=== PATIENT | male | born 1975 | race African-American/Black ===

== ENCOUNTER 2018-09-13 12:57 | Emergency (ER) | payer SELFPAY ==
--- NOTE | 2018-09-13 14:06 | RAD REPORT ---
EXAM DESCRIPTION: CT - Abdomen Pelvis Wo Contrast - 09/13/2018 1:55 pm CLINICAL HISTORY: Abdominal pain epigastric pain with vomiting COMPARISON: None TECHNIQUE: Computed axial tomography of the abdomen and pelvis was obtained. IV and oral contrast we re not requested. All CT scans are performed using dose optimization technique as appropriate and may include automated exposure control or mA/KV adjustment according to patient size. FINDINGS: The evaluation of solid organs, vessels and bowel is limited secondary to the lack of con trast administration. The liver, spleen, pancreas, adrenals and kidneys appear grossly normal. The appendix is normal. There is no evidence of diverticulitis. IMPRESSION: No acute abnormality is displayed.
[2018-09-13 14:35] LABS: Absolute Lymphocytes (CBC) 1.2 K/uL (0.7-4.9); Absolute Monocytes 0.3 K/uL (0.1-1.3); Absolute Neutrophil 7.3 K/uL (1.8-8.0); Basophils % 0.5 % (0-1.3); Eosinophils % 0.1 % (0-4.4); Hematocrit 43.4 % (39.6-49.0); Lymphocytes % 13.2 % (15.3-44.8); MPV 10.1 fL (7.6-11.3); Monocytes % 3.9 % (3.3-12.3); RBC Red Blood Cell Count 4.95 M/uL (4.33-5.43)
[2018-09-13 14:51] LABS: ALT/SGPT 50 U/L (12-78); AST/SGOT 39 U/L (15-37); Albumin 3.6 g/dL (3.4-5.0); Alkaline Phosphatase 138 U/L (45-117); BUN Blood Urea Nitrogen 8 mg/dL (7-18); Bicarbonate 31 mmol/L (21-32); Bilirubin Direct 0.2 mg/dL (0-0.2); Bilirubin Total 0.8 mg/dL (0.2-1.0); Glucose Level 282 mg/dL (74-106); Lipase 147 U/L (73-393); Potassium 4.1 mmol/L (3.5-5.1); Protein, Total 9.4 g/dL (6.4-8.2); Sodium Level 136 mmol/L (136-145)
[2018-09-13] MEDS ORDERED: KETOROLAC 30 MG/ML INJ ONE (15:04)
[2018-09-13] MEDS ORDERED: ONDANSETRON 4 MG/2 ML VIAL ONE (15:05)
[2018-09-13] MEDS ORDERED: FAMOTIDINE 20 MG/2 ML VIAL IV ONE (15:37)
--- NOTE | 2018-09-13 15:54 | EDPHYS ---
Physician Documentation [facility] Name: Ely Chisholm Age: 43 yrs Sex: Male : 1975 Arrival Date: 09/13/2018 Time: 13:00 Bed 25 Private MD: ED Physician Ed Gonzales HPI: 09/13 15:49 This 43 yrs old Black Male presents to ER via Ambulatory with complaints of Abdominal gs Pain. 15:49 The patient presents with abdominal pain in the epigastric area, in the upper abdomen. gs Onset: The symptoms/episode began/occurred 7 day(s) ago. The symptoms do not radiate. Associated signs and symptoms: Pertinent positives: nausea. The symptoms are described as crampy. The symptoms are described as sharp. Modifying factors: The symptoms are alleviated by nothing, the symptoms are aggravated by food. Severity of pain: At its worst the pain was moderate in the emergency department the pain is unchanged. The patient has not experienced similar symptoms in the past. The patient has not recently seen a physician. Historical: - Allergies: 13:31 No Known Allergies; ph - Home Meds: 13:31 Metformin Oral [Active]; Glipizide Oral [Active]; ph - PMHx: 13:31 Diabetes - NIDDM; ph - PSHx: 13:31 ankle; ph - Social history:: The patient lives at home. ROS: 15:49 All other systems are negative. gs Exam: 15:49 Head/Face: Normocephalic, atraumatic. Eyes: Pupils equal round and reactive to light, gs extra-ocular motions intact. Lids and lashes normal. Conjunctiva and sclera are non-icteric and not injected. Cornea within normal limits. Periorbital areas with no swelling, redness, or edema. ENT: Nares patent. No nasal discharge, no septal abnormalities noted. Tympanic membranes are normal and external auditory canals are clear. Oropharynx with no redness, swelling, or masses, exudates, or evidence of obstruction, uvula midline. Mucous membranes moist. Neck: Trachea midline, no thyromegaly or masses palpated, and no cervical lymphadenopathy. Supple, full range of motion without nuchal rigidity, or vertebral point tenderness. No Meningismus. Chest/axilla: Normal chest wall appearance and motion. Nontender with no deformity. No lesions are appreciated. Cardiovascular: Regular rate and rhythm with a normal S1 and S2. No gallops, murmurs, or rubs. Normal PMI, no JVD. No pulse deficits. Respiratory: Lungs have equal breath sounds bilaterally, clear to auscultation and percussion. No rales, rhonchi or wheezes noted. No increased work of breathing, no retractions or nasal flaring. Back: No spinal tenderness. No costovertebral tenderness. Full range of motion. Skin: Warm, dry with normal turgor. Normal color with no rashes, no lesions, and no evidence of cellulitis. MS/ Extremity: Pulses equal, no cyanosis. Neurovascular intact. Full, normal range of motion. Neuro: Awake and alert, GCS 15, oriented to person, place, time, and situation. Cranial nerves II-XII grossly intact. Motor strength 5/5 in all extremities. Sensory grossly intact. Cerebellar exam normal. Normal gait. 15:49 Constitutional: The patient appears in no acute distress, alert, awake. 15:49 Abdomen/GI: Palpation: moderate abdominal tenderness, in the epigastric area and left upper quadrant. 15:49 ECG was reviewed by the Attending Physician. Vital Signs: 13:30 BP 131 / 101; Pulse 103; Resp 20; Temp 99.3(O); Pulse Ox 100% on R/A; Weight 63.96 kg; ph Height 5 ft. 3 in. (160.02 cm); Pain 5/10; 15:00 BP 138 / 100; Pulse 100; Resp 17; Pulse Ox 100% on R/A; Pain 7/10; sg 13:30 Body Mass Index 24.98 (63.96 kg, 160.02 cm) ph MDM: 13:38 Patient medically screened. gs 15:49 Differential diagnosis: bowel obstruction, gastroesophageal reflux disease, gs non-specific abd pain, pancreatitis, Peptic Ulcer Disease. Data reviewed: vital signs, nurses notes. Counseling: I had a detailed discussion with the patient and/or guardian regarding: the historical points, exam findings, and any diagnostic results supporting the discharge/admit diagnosis, the presence of at least one elevated blood pressure reading (>120/80) during this emergency department visit, lab results, radiology results, the need for outpatient follow up, a property insurance agent. Response to treatment: the patient's symptoms have markedly improved after treatment, and as a result, I will discharge patient. 09/13 13:40 Order name: Basic Metabolic Panel; Complete Time: 15:04 09/13 13:40 Order name: CBC with Diff; Complete Time: 15:04 09/13 13:40 Order name: Hepatic Function; Complete Time: 15:04 09/13 13:40 Order name: Lipase; Complete Time: 15:04 09/13 13:41 Order name: Urine Microscopic Only 09/13 16:34 Order name: Urine Dipstick--Ancillary (enter results) 09/13 13:40 Order name: IV Saline Lock; Complete Time: 14:31 09/13 13:40 Order name: Labs collected and sent; Complete Time: 14:31 09/13 13:41 Order name: CT Abd/Pelvis - Without Cont; Complete Time: 14:26 09/13 15:17 Order name: EKG; Complete Time: 15:18 09/13 15:17 Order name: EKG - Nurse/Tech; Complete Time: 16:08 EC:49 Rate is 89 beats/min. Rhythm is regular. OR interval is normal. QRS interval is normal. gs T waves are Flattened. No ST changes noted. Clinical impression: Abnormal EKG without significant change. Interpreted by me. Administered Medications: 15:00 Drug: TORadol 30 mg Route: IVP; Site: right antecubital; sg 15:37 Follow up: Response: No adverse reaction; Pain is decreased sg 15:02 Drug: Zofran 4 mg Route: IVP; Site: right antecubital; sg 15:37 Follow up: Response: No adverse reaction; Vomiting decreased sg 15:36 Drug: Pepcid 20 mg Route: IVP; Site: right antecubital; sg 16:08 Follow up: Response: No adverse reaction sg Disposition: 09/13/18 15:53 Discharged to Home. Impression: Upper abdominal pain, unspecified, Vomiting. - Condition is Stable. - Discharge Instructions: Nausea and Vomiting, Adult, Managing Your Hypertension. - Prescriptions for Pepcid 20 mg Oral Tablet - take 1 tablet by ORAL route every 12 hours for 10 days; 60 tablet. Zofran 4 mg Oral Tablet - take 1 tablet by ORAL route every 12 hours As needed; 6 tablet. - Work release form, Family Work Release, Medication Reconciliation Form, Thank You Letter, Antibiotic Education, Prescription Opioid Use form. - Follow up: Mynor Cleveland MD; When: 2 - 3 days; Reason: Re-evaluation by your physician. Signatures: Dispatcher [employer] EDSanjeev Cohn RN RN sg Desiree Adams RN RN iw Moira Sanchez RN RN ph Ed Gonzales MD MD Corrections: (The following items were deleted from the chart) 16:27 15:53 09/13/2018 15:53 Discharged to Home. Impression: Upper abdominal pain, sg unspecified; Vomiting. Condition is Stable. Forms are Medication Reconciliation Form, Thank You Letter, Antibiotic Education, Prescription Opioid Use. Follow up: Mynor Cleveland; When: 2 - 3 days; Reason: Re-evaluation by your physician. 16:52 16:27 09/13/2018 15:53 Discharged to Home. Impression: Upper abdominal pain, iw unspecified; Vomiting. Condition is Stable. Discharge Instructions: Nausea and Vomiting, Adult, Managing Your Hypertension. Prescriptions for Pepcid 20 mg Oral Tablet - take 1 tablet by ORAL route every 12 hours for 10 days; 60 tablet, Zofran 4 mg Oral Tablet - take 1 tablet by ORAL route every 12 hours As needed; 6 tablet. and Forms are Medication Reconciliation Form, Thank You Letter, Antibiotic Education, Prescription Opioid Use, Work release form, Family Work Release. Follow up: Mynor Cleveland; When: 2 - 3 days; Reason: Re-evaluation by your physician. sg
--- NOTE | 2018-09-13 15:54 | ER ---
Nurse's Notes [facility] Name: Ely Chisholm Age: 43 yrs Sex: Male : 1975 Arrival Date: 09/13/2018 Time: 13:00 Bed 25 Private MD: Diagnosis: Upper abdominal pain, unspecified;Vomiting Presentation: 09/13 13:29 Presenting complaint: Patient states: Epigastric pain, N/V x 1 week, denies diarrhea or ph fever, states, " I can't eat a full meal because the pain gets too bad." Reports that pain improves after vomiting. Transition of care: patient was not received from another setting of care. Onset of symptoms was September 13, 2018. Risk Assessment: Do you want to hurt yourself or someone else? Patient reports no desire to harm self or others. Initial Sepsis Screen: Does the patient meet any 2 criteria? No. Patient's initial sepsis screen is negative. Does the patient have a suspected source of infection? No. Patient's initial sepsis screen is negative. Care prior to arrival: None. 13:29 Method Of Arrival: Ambulatory ph 13:29 Acuity: SALMA 3 ph Historical: - Allergies: 13:31 No Known Allergies; ph - Home Meds: 13:31 Metformin Oral [Active]; Glipizide Oral [Active]; ph - PMHx: 13:31 Diabetes - NIDDM; ph - PSHx: 13:31 ankle; ph - Social history:: The patient lives at home. Screenin:55 Abuse screen: Denies threats or abuse. Denies injuries from another. Nutritional sg screening: No deficits noted. Tuberculosis screening: No symptoms or risk factors identified. Never had TB. Fall Risk None identified. Assessment: 13:58 General: Appears in no apparent distress. comfortable, well groomed, well developed, sg well nourished, Behavior is calm, cooperative, appropriate for age. Pain: Complains of pain in abdomen Quality of pain is described as aching. Neuro: No deficits noted. Cardiovascular: Capillary refill is brisk in bilateral fingers Patient's skin is warm and dry. Chest pain is denied. Respiratory: Airway Respiratory effort is even, unlabored, Respiratory pattern is regular, symmetrical. GI: Bowel sounds present X 4 quads. Abd is soft and non tender X 4 quads. : No signs and/or symptoms were reported regarding the genitourinary system. EENT: No deficits noted. Derm: Skin is intact, is healthy with good turgor, Skin is dry, Skin is normal. Musculoskeletal: No signs and/or symptoms reported regarding the musculoskeletal system. 14:51 Reassessment: pt requesting food, drink, and pain medication at this time. sg notified, orders received, will continue to monitor. 14:58 Reassessment: Patient and/or family updated on plan of care and expected duration. Pain sg level reassessed. pt actively vomiting bile, notified, orders received for NPO, for Zofran 4 mg IVP along with Toradol 30 mg IVP, pt medicated, see EMAR. 16:23 Reassessment: Patient appears in no apparent distress at this time. Patient and/or sg family updated on plan of care and expected duration. Pain level reassessed. Patient is alert, oriented x 3, equal unlabored respirations, skin warm/dry/pink. awaiting to re evaluate pt prior to dc to home. Vital Signs: 13:30 BP 131 / 101; Pulse 103; Resp 20; Temp 99.3(O); Pulse Ox 100% on R/A; Weight 63.96 kg; ph Height 5 ft. 3 in. (160.02 cm); Pain 5/10; 15:00 BP 138 / 100; Pulse 100; Resp 17; Pulse Ox 100% on R/A; Pain 7/10; sg 13:30 Body Mass Index 24.98 (63.96 kg, 160.02 cm) ph ED Course: 13:00 Patient arrived in ED. as 13:25 Ed Gonzales MD is Attending Physician. gs 13:30 Triage completed. ph 13:31 Sanjeev Rossi, MOMO is Primary Nurse. sg 13:54 CT completed. Patient tolerated procedure well. Patient moved to CT via wheelchair. sj Patient moved back from CT. 13:55 CT Abd/Pelvis - Without Cont In Process Unspecified. EDMS 13:55 Patient has correct armband on for positive identification. Bed in low position. Call sg light in reach. Pulse ox on. NIBP on. Warm blanket given. Verbal reassurance given. Head of bed elevated. 13:58 Patient moved back from CT. sg 14:23 Inserted saline lock: 20 gauge in right antecubital area, using aseptic technique. ag4 Blood collected. 15:52 Mynor Cleveland MD is Referral Physician. 16:36 EKG done, by civil cad tech. reviewed by Ed Gonzales MD. sm3 Administered Medications: 15:00 Drug: TORadol 30 mg Route: IVP; Site: right antecubital; sg 15:37 Follow up: Response: No adverse reaction; Pain is decreased sg 15:02 Drug: Zofran 4 mg Route: IVP; Site: right antecubital; sg 15:37 Follow up: Response: No adverse reaction; Vomiting decreased sg 15:36 Drug: Pepcid 20 mg Route: IVP; Site: right antecubital; sg 16:08 Follow up: Response: No adverse reaction sg Outcome: 15:53 Discharge ordered by . gs 16:27 Patient left the ED. 16:52 Patient left the ED. iw Signatures: Dispatcher [employer] EDMS Sanjeev Rossi RN RN sg Jones, Susan sj Martinez, Amelia as Williams, Irene, RN RN Moira Sanchez RN RN Ed Gonzales MD MD Destiney Anand 3 Choco, Garrick ag4
[2018-09-13 17:01] LABS: Urine RBC <5 /HPF (NONE SEEN)
[2018-09-13 17:02] LABS: Urine Bacteria <20 /HPF (NONE SEEN); Urine Culture Reflex Order NOT NEEDED
[2018-09-13 17:02] LABS: Urine Blood NEGATIVE (NEG); Urine Glucose 2+ (NEG); Urine Protein 1+ (NEG); Urine Specific Gravity 1.015 (1.005-1.030)
--- NOTE | 2018-09-13 18:25 | EKG ---
Test Date: 2018-09-13 Test Time: 15:44:28 Stapler Hand: OMER MEASUREMENT RESULTS: Intervals: Rate: 89 WV: 124 QRSD: 76 QT: 372 QTc: 452 Ventress: P: 74 WV: 124 QRS: 18 T: 56 INTERPRETIVE STATEMENTS: Normal sinus rhythm Nonspecific T wave abnormality Abnormal ECG Compared to ECG 02/06/2002 16:58:00 T-wave abnormality now present Sinus arrhythmia no longer present Electronically Signed On 09-13-18 18:24:50 INSTRUCTOR DECORATING by Mario Carlton
== END 2018-09-13 16:52 | disposition home or self-care (01) ==
LOC: ER 12:57
DX: R10.10 Upper abdominal pain, unspecified (principal); R11.10 Vomiting, unspecified; R94.31 Abnormal electrocardiogram [ECG] [EKG]; E11.9 Type 2 diabetes mellitus without complications; Z79.84 Long term (current) use of oral hypoglycemic drugs
CPT/HCPCS: 36415; 74176; 80048; 80076; 81003; 81015; 83690; 85025; 93005; 96374; 96375; 99284; J2405

== ENCOUNTER 2020-03-11 12:59 | Emergency (ER) | payer SELFPAY ==
--- OUTSIDE RECORDS SUMMARY | 2020-03-11 14:45 | XMS REPORT | Continuity of Care Document ---
:1975 Author Organization [facility] t Address [address] [place] [address] Dr. Elliott [address] [place] [id number] Care Team Providers Name Role Phone Unavailable Unavailable Unavailable Problems This patient has no known problems. Allergies, Adverse Reactions, Alerts This patient has no known allergies or adverse reactions. Medications This patient has no known medications. Procedures This patient has no known procedures. Results This patient has no known results.
[2020-03-11] MEDS ORDERED: MORPHINE 4 MG/ML SYR ONE (15:28)
[2020-03-11] MEDS ORDERED: ONDANSETRON 4 MG/2 ML VIAL ONE (15:29)
[2020-03-11] MEDS ORDERED: NA CHLORIDE 0.9% 1,000 ML ONE ×2 (15:29→16:45)
[2020-03-11 15:30] LABS: Absolute Lymphocytes (CBC) 0.6 K/uL (0.7-4.9); Basophils % 0.3 % (0-1.3); Hematocrit 45.6 % (39.6-49.0); Lymphocytes % 6.7 % (15.3-44.8); MPV 10.4 fL (7.6-11.3); RBC Red Blood Cell Count 5.25 M/uL (4.33-5.43)
[2020-03-11 16:07] LABS: ALT/SGPT 105 U/L (12-78); AST/SGOT 86 U/L (15-37); Albumin 3.4 g/dL (3.4-5.0); Alkaline Phosphatase 161 U/L (45-117); BUN Blood Urea Nitrogen 11 mg/dL (7-18); Bicarbonate 27 mmol/L (21-32); Bilirubin Direct 0.2 mg/dL (0-0.2); Bilirubin Total 0.5 mg/dL (0.2-1.0); Lipase 38 U/L (73-393); Potassium 4.3 mmol/L (3.5-5.1); Protein, Total 8.9 g/dL (6.4-8.2); Sodium Level 136 mmol/L (136-145)
[2020-03-11 16:08] LABS: Glucose Level 418 mg/dL (74-106)
[2020-03-11 16:17] LABS: Urine Blood TRACE (NEG); Urine Glucose 2+ (NEG); Urine Protein 2+ (NEG); Urine Specific Gravity 1.015 (1.005-1.030)
[2020-03-11] MEDS ORDERED: INSULIN -REGULAR HUMAN 50 UNIT/0.5 ML ML ONE (16:45)
--- NOTE | 2020-03-11 17:50 | RAD REPORT ---
EXAM DESCRIPTION: CTAbdomen Pelvis W Contrast - 03/11/2020 5:29 pm CLINICAL HISTORY: Abdominal pain. abd pain COMPARISON: No comparisons TECHNIQUE: Biphasic CT imaging of the abdomen and pelvis was performed with 100 ml non-ionic IV cont rast. All CT scans are performed using dose optimization technique as appropriate and may include automated exposure control or mA/KV adjustment according to patient size. FINDINGS: Small opacities are present in the lung bases, incompletely assessed.Cholecystectomy clips . The liver, spleen, pancreas, adrenal glands and kidneys are within normal limits. No bowel obstruction, free air, free fluid or abscess. The appendix is normal. No evidence of signi ficant lymphadenopathy. No suspicious bony findings. IMPRESSION: No acute intra-abdominal or pelvic finding.
--- NOTE | 2020-03-11 18:05 | EDPHYS ---
Physician Documentation [facility] Name: Ely Chisholm Age: 44 yrs Sex: Male : 1975 Arrival Date: 03/11/2020 Time: 13:06 Bed 25 Private MD: ED Physician Stephen Mcpherson HPI: 03/11 16:35 This 44 yrs old Black Male presents to ER via Wheelchair with complaints of Abdominal kb Pain, Nausea/Vomiting. 16:35 The patient presents with abdominal pain that is diffuse. Onset: The symptoms/episode kb began/occurred this morning, at 03:30. The symptoms do not radiate. Associated signs and symptoms: Pertinent positives: nausea and vomiting, Pertinent negatives: anorexia, blood in stools, chest pain, constipation, diarrhea, dysuria, fever, headache, hematuria, palpitations, shortness of breath, testicular pain, vomiting blood. The symptoms are described as constant. Modifying factors: The symptoms are alleviated by nothing, the symptoms are aggravated by nothing. Severity of pain: At its worst the pain was moderate in the emergency department the pain is unchanged. The patient has not experienced similar symptoms in the past. The patient has not recently seen a physician. Historical: - Allergies: 13:27 No Known Allergies; ca1 - Home Meds: 13:27 Glipizide Oral [Active]; carvedilol 12.5 mg oral tab 1 tab 2 times per day [Active]; ca1 aspirin 81 mg Oral TbEC 1 tab once daily [Active]; glyburide 5 mg Oral tab 1 tab 2 times per day [Active]; pioglitazone 30 mg oral tab 1 tab once daily [Active]; - PMHx: 13:27 Diabetes - NIDDM; Hypertension; ca1 - PSHx: 13:27 ankle; ca1 - Immunization history:: Adult Immunizations not up to date. - Social history:: Smoking status: Patient denies any tobacco usage or history of. ROS: 16:31 Constitutional: Negative for fever, chills, and weight loss, Cardiovascular: Negative kb for chest pain, palpitations, and edema, Respiratory: Negative for shortness of breath, cough, wheezing, and pleuritic chest pain, Back: Negative for injury and pain, MS/Extremity: Negative for injury and deformity, Skin: Negative for injury, rash, and discoloration, Neuro: Negative for headache, weakness, numbness, tingling, and seizure. 16:31 Abdomen/GI: Positive for abdominal pain, nausea and vomiting, Negative for diarrhea, constipation, abdominal cramps, abdominal distension, anorexia. Exam: 16:31 Constitutional: This is a well developed, well nourished patient who is awake, alert, kb and in no acute distress. Head/Face: Normocephalic, atraumatic. Chest/axilla: Normal chest wall appearance and motion. Nontender with no deformity. No lesions are appreciated. Cardiovascular: Regular rate and rhythm with a normal S1 and S2. No gallops, murmurs, or rubs. Normal PMI, no JVD. No pulse deficits. Respiratory: Lungs have equal breath sounds bilaterally, clear to auscultation and percussion. No rales, rhonchi or wheezes noted. No increased work of breathing, no retractions or nasal flaring. Back: No spinal tenderness. No costovertebral tenderness. Full range of motion. Skin: Warm, dry with normal turgor. Normal color with no rashes, no lesions, and no evidence of cellulitis. MS/ Extremity: Pulses equal, no cyanosis. Neurovascular intact. Full, normal range of motion. Neuro: Awake and alert, GCS 15, oriented to person, place, time, and situation. Cranial nerves II-XII grossly intact. Motor strength 5/5 in all extremities. Sensory grossly intact. Cerebellar exam normal. Normal gait. 16:31 Abdomen/GI: Inspection: bruising, Bowel sounds: normal, in all quadrants, Palpation: soft, in all quadrants, moderate abdominal tenderness, in all quadrants. Vital Signs: 13:23 BP 171 / 101; Pulse 85; Resp 15 S; Temp 97.7(TE); Pulse Ox 96% on R/A; Weight 68.95 kg ca1 (R); Height 5 ft. 3 in. (160.02 cm); 15:42 BP 167 / 106; Pulse 80; Resp 15; Pulse Ox 98% on R/A; vc 16:00 BP 195 / 107; Pulse 73; Resp 16; Pulse Ox 98% on R/A; vc 18:03 BP 179 / 96; Pulse 81; Pulse Ox 98% on R/A; vc 13:23 Body Mass Index 26.93 (68.95 kg, 160.02 cm) ca1 MDM: 14:09 Patient medically screened. kb 16:32 Data reviewed: vital signs, nurses notes. Data interpreted: Pulse oximetry: on room air kb is 98 %. Interpretation: normal. 17:52 Counseling: I had a detailed discussion with the patient and/or guardian regarding: the kb historical points, exam findings, and any diagnostic results supporting the discharge/admit diagnosis, lab results, radiology results, the need for outpatient follow up, a family practitioner, to return to the emergency department if symptoms worsen or persist or if there are any questions or concerns that arise at home. 03/11 13:44 Order name: Glucose, Ancillary Testing; Complete Time: 13:45 EDMS 03/11 15:33 Order name: CBC with Automated Diff EDMS 03/11 15:46 Order name: Acetone Level; Complete Time: 16:17 EDMS 03/11 16:09 Order name: Basic Metabolic Panel; Complete Time: 16:17 EDMS 03/11 16:09 Order name: Liver (Hepatic) Function; Complete Time: 16:17 EDMS 03/11 16:09 Order name: Lipase; Complete Time: 16:17 EDMS 03/11 16:17 Order name: Urine Dipstick-Ancillary; Complete Time: 16:17 EDMS 03/11 18:15 Order name: Glucose, Ancillary Testing EDMS 03/11 14:39 Order name: IV Saline Lock; Complete Time: 15:17 kb 03/11 14:39 Order name: Labs collected and sent; Complete Time: 15:17 kb 03/11 14:39 Order name: Urine Dipstick-Ancillary (obtain specimen); Complete Time: 15:41 kb 03/11 16:08 Order name: CT Abd/Pelvis - IV Contrast Only kb 03/11 17:51 Order name: CT; Complete Time: 17:51 EDMS 03/11 17:53 Order name: Blood Glucose Level; Complete Time: 18:03 kb Administered Medications: 15:41 Drug: NS 0.9% 1000 ml Route: IV; Rate: 1000 ml; Site: right antecubital; vc 16:41 Follow up: IV Status: Completed infusion; IV Intake: 1000ml vc 15:41 Drug: morphine 4 mg Route: IVP; Site: right antecubital; vc 18:24 Follow up: Response: No adverse reaction vc 15:41 Drug: Zofran (Ondansetron) 4 mg Route: IVP; Site: right antecubital; vc 18:24 Follow up: Response: No adverse reaction vc 16:39 Drug: Insulin Regular Human 10 units {Co-Signature: ss (Marni Lea RN).} Route: IVP; vc Site: right antecubital; 18:23 Follow up: Response: No adverse reaction; Marked relief of symptoms vc 16:39 Drug: NS 0.9% 1000 ml Route: IV; Rate: 1000 ml; Site: right antecubital; vc 18:34 Follow up: IV Status: Completed infusion; IV Intake: 1000ml vc Point of Care Testing: Blood Glucose: 13:28 Blood Glucose: 423 mg/dL; ca1 Ranges: Critical Glucose Levels:Adult <50 mg/dl or >400 mg/dl <40 mg/dl or >180 mg/dl Disposition: 03/12 15:57 Co-signature as Attending Physician, Stephen Mcpherson MD I agree with the assessment and kdr plan of care. Disposition: 03/11/20 18:04 Discharged to Home. Impression: Hyperglycemia, unspecified, Generalized abdominal pain. - Condition is Stable. - Discharge Instructions: Abdominal Pain, Adult, [id number], Hyperglycemia, [id number]. - Prescriptions for Bentyl 20 mg Oral Tablet - take 1 tablet by ORAL route every 6 hours As needed; 20 tablet. Zofran 4 mg Oral Tablet - take 1 tablet by ORAL route every 6 hours As needed; 20 tablet. - Medication Reconciliation Form, Thank You Letter, Antibiotic Education, Prescription Opioid Use form. - Follow up: Emergency Department; When: As needed; Reason: Worsening of condition. Follow up: Private Physician; When: 2 - 3 days; Reason: Recheck today's complaints, Continuance of care, Re-evaluation by your physician. Addendum: 03/13/2020 18:54 Addendum: Pt contacted at 1855 to notify of positive COVID-19 test results, feeling r n better, questions answered, told health department will be contacting for further instructions and documentation. . Signatures: Dispatcher [employer] EDMS Shanell Soto, REGLAC JEANNA-Stephen Polk MD MD kdr Nieto, Roman, MD MD rn Acob, Joyce, RN RN ca1 Calcote, AbbeyMOMO fiore RN, vc, RN ss Corrections: (The following items were deleted from the chart) 03/11 18:37 18:04 03/11/2020 18:04 Discharged to Home. Impression: Hyperglycemia, unspecified; vc Generalized abdominal pain. Condition is Stable. Discharge Instructions: Abdominal Pain, Adult, Zzla-[id number], Hyperglycemia, Ruhm-wx-Quoi. Prescriptions for Bentyl 20 mg Oral Tablet - take 1 tablet by ORAL route every 6 hours As needed; 20 tablet, Zofran 4 mg Oral Tablet - take 1 tablet by ORAL route every 6 hours As needed; 20 tablet. and Forms are Medication Reconciliation Form, Thank You Letter, Antibiotic Education, Prescription Opioid Use. Follow up: Emergency Department; When: As needed; Reason: Worsening of condition. Follow up: Private Physician; When: 2 - 3 days; Reason: Recheck today's complaints, Continuance of care, Re-evaluation by your physician. kb
--- NOTE | 2020-03-11 18:05 | ER ---
Nurse's Notes [facility] Name: Ely Chisholm Age: 44 yrs Sex: Male : 1975 Arrival Date: 03/11/2020 Time: 13:06 Bed 25 Private MD: Diagnosis: Hyperglycemia, unspecified;Generalized abdominal pain Presentation: 03/11 13:23 Chief complaint: Patient states: Vomiting and lost of appetite since yesterday. Denies ca1 diarrhea. Denies fever. Coronavirus screen: Proceed with normal triage. Patient denies a cough. Patient denies shortness of breath or difficulty breathing. Patient denies measured and/or subjective temperature greater than 100.4F prior to today's visit. Patient denies travel on a cruise ship or to a country the [facility] currently lists as an affected area. Patient denies contact with known and/or suspected case of COVID-19. Ebola Screen: Patient negative for fever greater than or equal to 101.5 degrees Fahrenheit, and additional compatible Ebola Virus Disease symptoms Patient denies exposure to infectious person. Patient denies travel to an Ebola-affected area in the 21 days before illness onset. No symptoms or risks identified at this time. Initial Sepsis Screen: Does the patient meet any 2 criteria? No. Patient's initial sepsis screen is negative. Does the patient have a suspected source of infection? No. Patient's initial sepsis screen is negative. Risk Assessment: Do you want to hurt yourself or someone else? Patient reports no desire to harm self or others. Onset of symptoms was March 11, 2020. 13:23 Method Of Arrival: Wheelchair ca1 13:23 Acuity: SALMA 2 ca1 Historical: - Allergies: 13:27 No Known Allergies; ca1 - Home Meds: 13:27 Glipizide Oral [Active]; carvedilol 12.5 mg oral tab 1 tab 2 times per day [Active]; ca1 aspirin 81 mg Oral TbEC 1 tab once daily [Active]; glyburide 5 mg Oral tab 1 tab 2 times per day [Active]; pioglitazone 30 mg oral tab 1 tab once daily [Active]; - PMHx: 13:27 Diabetes - NIDDM; Hypertension; ca1 - PSHx: 13:27 ankle; ca1 - Immunization history:: Adult Immunizations not up to date. - Social history:: Smoking status: Patient denies any tobacco usage or history of. Screenin:10 Abuse screen: Denies threats or abuse. Nutritional screening: No deficits noted. vc Tuberculosis screening: No symptoms or risk factors identified. Fall Risk None identified. Assessment: 14:10 General: Appears in no apparent distress. comfortable, Behavior is calm, cooperative, vc appropriate for age. Pain: Complains of pain in abdomen Pain does not radiate. Pain currently is 5 out of 10 on a pain scale. Quality of pain is described as sharp. Neuro: Level of Consciousness is awake, alert, obeys commands, Oriented to person, place, time, situation, Appropriate for age. Cardiovascular: Capillary refill < 3 seconds Patient's skin is warm and dry. Respiratory: Airway is patent Respiratory effort is even, unlabored, Respiratory pattern is regular, symmetrical. GI: Bowel sounds present X 4 quads. Abd is soft Abdomen is tender to palpation. : No signs and/or symptoms were reported regarding the genitourinary system. Derm: Skin is intact, is healthy with good turgor. Musculoskeletal: Circulation, motion, and sensation intact. Range of motion: intact in all extremities. 14:11 Reassessment: FATHER IS A PUI PATIENT IN THE ER JASS. vc 15:10 Reassessment: Patient appears in no apparent distress at this time. Patient and/or vc family updated on plan of care and expected duration. Pain level reassessed. Patient is alert, oriented x 3, equal unlabored respirations, skin warm/dry/pink. 16:10 Reassessment: Patient appears in no apparent distress at this time. Patient and/or vc family updated on plan of care and expected duration. Pain level reassessed. Patient is alert, oriented x 3, equal unlabored respirations, skin warm/dry/pink. 17:10 Reassessment: Patient appears in no apparent distress at this time. Patient and/or vc family updated on plan of care and expected duration. Pain level reassessed. Patient is alert, oriented x 3, equal unlabored respirations, skin warm/dry/pink. 18:10 Reassessment: Patient appears in no apparent distress at this time. Patient and/or vc family updated on plan of care and expected duration. Pain level reassessed. Patient is alert, oriented x 3, equal unlabored respirations, skin warm/dry/pink. Patient states feeling better. Patient states symptoms have improved. Vital Signs: 13:23 BP 171 / 101; Pulse 85; Resp 15 S; Temp 97.7(TE); Pulse Ox 96% on R/A; Weight 68.95 kg ca1 (R); Height 5 ft. 3 in. (160.02 cm); 15:42 BP 167 / 106; Pulse 80; Resp 15; Pulse Ox 98% on R/A; vc 16:00 BP 195 / 107; Pulse 73; Resp 16; Pulse Ox 98% on R/A; vc 18:03 BP 179 / 96; Pulse 81; Pulse Ox 98% on R/A; vc 13:23 Body Mass Index 26.93 (68.95 kg, 160.02 cm) ca1 ED Course: 13:06 Patient arrived in ED. fj1 13:13 Shanell Soto [facility]-C [facility]. kb 13:13 Stephen Mcpherson MD is Attending Physician. kb 13:25 Triage completed. ca1 13:27 Arm band placed on right wrist. ca1 14:10 Patient has correct armband on for positive identification. Placed in gown. Bed in low vc position. Call light in reach. Side rails up X2. Pulse ox on. NIBP on. 14:11 Abbey Juarez, MOMO is Primary Nurse. vc 15:18 Inserted saline lock: 20 gauge in right antecubital area, using aseptic technique. ss Blood collected. 18:33 No provider procedures requiring assistance completed. IV discontinued, intact, vc bleeding controlled, No redness/swelling at site. Pressure dressing applied. 03/12 09:21 Health Dept notified/ PUI # [id number] / Itzel from lab notified. eb Administered Medications: 03/11 15:41 Drug: NS 0.9% 1000 ml Route: IV; Rate: 1000 ml; Site: right antecubital; vc 16:41 Follow up: IV Status: Completed infusion; IV Intake: 1000ml vc 15:41 Drug: morphine 4 mg Route: IVP; Site: right antecubital; vc 18:24 Follow up: Response: No adverse reaction vc 15:41 Drug: Zofran (Ondansetron) 4 mg Route: IVP; Site: right antecubital; vc 18:24 Follow up: Response: No adverse reaction vc 16:39 Drug: Insulin Regular Human 10 units {Co-Signature: rina (Marni Lea RN).} Route: IVP; vc Site: right antecubital; 18:23 Follow up: Response: No adverse reaction; Marked relief of symptoms vc 16:39 Drug: NS 0.9% 1000 ml Route: IV; Rate: 1000 ml; Site: right antecubital; vc 18:34 Follow up: IV Status: Completed infusion; IV Intake: 1000ml vc Point of Care Testing: Blood Glucose: 13:28 Blood Glucose: 423 mg/dL; ca1 Ranges: Intake: 16:41 IV: 1000ml; Total: 1000ml. vc 18:34 IV: 1000ml; Total: 2000ml. vc Outcome: 18:04 Discharge ordered by . kb 18:33 Discharged to home ambulatory. vc 18:33 Condition: improved 18:33 Discharge instructions given to patient, Instructed on discharge instructions, follow up and referral plans. medication usage, Demonstrated understanding of medications, Prescriptions given X 2. 18:37 Patient left the ED. vc Signatures: Shanell Soto, SALES SERVICE ROUTE MANAGER-C SALES SERVICE ROUTE MANAGER-Marni Garcia, MOMO RN ss Ivett Celaya Cheryl RN RN ca1 Abbey Juarez RN RN vc Alonzo Nichols RN ss
[2020-03-11 18:41] VITALS: TEMP 97.7
[2020-03-11 18:42] VITALS: O2SAT 98
[2020-03-11 18:45] VITALS: BP 179/96
[2020-03-11 21:03] LABS: Blood Morphology Comment NOT SEEN (NOT SEEN); Platelet Estimate DECR; Urine White Blood Cell Casts OK
== END 2020-03-11 18:37 | disposition home or self-care (01) ==
LOC: ER 12:59
DX: U07.1 COVID-19 (principal); E11.65 Type 2 diabetes mellitus with hyperglycemia; I10 Essential (primary) hypertension; Z79.82 Long term (current) use of aspirin
CPT/HCPCS: 36415; 74177; 80048; 80076; 81003; 82010; 82947; 83690; 85025; 96361; 96374; 96375; 99284; J2405; J7030; Q9967; U0001

== ENCOUNTER 2024-01-04 20:01 | Inpatient (IN) | payer OTHER, SELFPAY ==
--- OUTSIDE RECORDS SUMMARY | 2024-01-04 20:03 | XMS REPORT | Continuity of Care Document ---
Author Name Unknown Address [address] [place] [address] [facility] Address [address] [place] [address] Care Team Providers Care Home Care Nurse Name Role Phone Unavailable Unavailable Unavailable
[2024-01-04] MEDS ORDERED: NA CHLORIDE 0.9% 500 ML ONE (20:32)
[2024-01-04] MEDS ORDERED: NA CHLORIDE 0.9% 1,000 ML ONE ×3 (20:32→22:09)
--- NOTE | 2024-01-04 20:55 | RAD REPORT ---
EXAM DESCRIPTION: RAD - Chest Single View - 01/04/2024 8:43 pm CLINICAL HISTORY: CHEST PAIN COMPARISON: No comparisons FINDINGS: Lines: None. Lungs: No evidence of edema or pneumonia. Pleural: No significant pleural effusions or pneumothorax. Cardiac: The heart size is within normal limits. Mediastinum: Within normal limits. Bones: No acute fractures. Other: None IMPRESSION: No acute cardiopulmonary disease.
[2024-01-04 21:10] LABS: Absolute Basophils 0.1 K/uL (0-0.5); Absolute Lymphocytes (CBC) 1.1 K/uL (0.7-4.9); Absolute Monocytes 0.6 K/uL (0.1-1.3); Basophils % 0.5 % (0-1.3); Hematocrit 41.9 % (39.6-49.0); Lymphocytes % 5.2 % (15.3-44.8); MCH 29.6 pg (27.0-35.0); MCHC 33.3 g/dL (32.0-36.0); MCV 88.7 fL (80-100); MPV 9.9 fL (7.6-11.3); Neutrophils % 91.3 % (41.7-73.7); Nucleated Red Blood Cells % 0.1 % (0-0); Platelets 174 thou/uL (152-406); RBC Red Blood Cell Count 4.72 M/uL (4.33-5.43); Red Cell Distribution Width 14.4 % (12.1-15.2)
[2024-01-04 21:16] LABS: PT Prothrombin Time 13.6 SECONDS (9.5-12.5); Protime INR 1.24
[2024-01-04 21:21] LABS: SARS-CoV-2 Antigen CONTROL BLUE LINE VIS/BG OK; SARS-CoV-2 Antigen Rapid Res Negative (Negative)
[2024-01-04 21:30] LABS: Albumin 3.5 g/dL (3.4-5.0); Anion Gap 17.6 mEq/L (5.0-15.0); Bilirubin Direct 0.3 mg/dL (0-0.2); Bilirubin Indirect, Calculated 0.6 mg/dL (0.2-0.8); Bilirubin Total 0.9 mg/dL (0.2-1.0); Potassium 4.6 mEq/L (3.5-5.1); Protein, Total 9.3 g/dL (6.4-8.2)
[2024-01-04 21:31] LABS: Albumin/Globulin Ratio 0.6 (1.1-1.8); Globulin 5.8 g/dL (2.3-3.5); Magnesium 2.1 mg/dL (1.6-2.4)
[2024-01-04] MEDS ORDERED: ONDANSETRON 4 MG/2 ML VIAL ONE (21:52)
[2024-01-04 21:56] LABS: Blood Morphology Comment NOT SEEN (NOT SEEN); Platelet Estimate ADEQ; White Blood Cell Scan OK (OK)
[2024-01-04 21:57] LABS: Troponin High Sensitivity 5.7 pg/mL (<58.9)
--- NOTE | 2024-01-04 22:08 | EDPHYS ---
Physician Documentation [facility] Name: Ely Chisholm Age: 48 yrs Sex: Male : 1975 Arrival Date: 01/04/2024 Time: 20:01 Bed 6 Private MD: SCAR Physician Sree Cantrell HPI: 01/03 21:22 This 48 yrs old Black Male presents to ER via Wheelchair with complaints of Vomiting, judy General Weakness. 21:22 The patient presents to the emergency department with nausea, vomiting, diarrhea, that judy is continuous. Onset: The symptoms/episode began/occurred 1 day(s) ago. Possible causes: unknown. The symptoms are aggravated by food , The symptoms are alleviated by nothing. remaining still. Associated signs and symptoms: Pertinent positives: diarrhea, nausea, vomiting. Severity of symptoms: At their worst the symptoms were moderate in the emergency department the symptoms are unchanged. The patient has experienced similar episodes in the past, a few times. Historical: - Allergies: 20:24 No Known Allergies; km8 - Home Meds: 20:24 aspirin 81 mg Oral TbEC 1 tab once daily [Active]; carvedilol 12.5 mg Oral tab 1 tab 2 km8 times per day [Active]; Glipizide Oral [Active]; glyburide 5 mg Oral tab 1 tab 2 times per day [Active]; pioglitazone 30 mg Oral tab 1 tab once daily [Active]; - PMHx: 20:24 Diabetes - NIDDM; Hypertension; km8 - PSHx: 20:24 Cholecystectomy; km8 - Immunization history:: Adult Immunizations up to date. - Infectious Disease History:: Denies. - Social history:: Smoking status: Patient denies any tobacco usage or history of. Patient uses alcohol, but reports only rare drinking. Patient/guardian denies using street drugs. ROS: 21:23 Constitutional: Negative for fever, chills, and weight loss, Eyes: Negative for injury, judy pain, redness, and discharge, ENT: Negative for injury, pain, and discharge, Neck: Negative for injury, pain, and swelling, Cardiovascular: Negative for chest pain, palpitations, and edema, Respiratory: Negative for shortness of breath, cough, wheezing, and pleuritic chest pain, Back: Negative for injury and pain, : Negative for injury, bleeding, discharge, and swelling, MS/Extremity: Negative for injury and deformity, Skin: Negative for injury, rash, and discoloration, Neuro: Negative for headache, weakness, numbness, tingling, and seizure, Psych: Negative for depression, anxiety, suicide ideation, homicidal ideation, and hallucinations, Allergy/Immunology: Negative for hives, rash, and allergies, Endocrine: Negative for neck swelling, polydipsia, polyuria, polyphagia, and marked weight changes, Hematologic/Lymphatic: Negative for swollen nodes, abnormal bleeding, and unusual bruising, 21:23 Abdomen/GI: Positive for nausea, vomiting, and diarrhea, nausea, vomiting, diarrhea, 21:23 Neuro: Positive for weakness, Exam: 21:23 Constitutional: This is a well developed, well nourished patient who is awake, alert, judy and in no acute distress. Head/Face: Normocephalic, atraumatic. Eyes: Pupils equal round and reactive to light, extra-ocular motions intact. Lids and lashes normal. Conjunctiva and sclera are non-icteric and not injected. Cornea within normal limits. Periorbital areas with no swelling, redness, or edema. ENT: Nares patent. No nasal discharge, no septal abnormalities noted. Tympanic membranes are normal and external auditory canals are clear. Oropharynx with no redness, swelling, or masses, exudates, or evidence of obstruction, uvula midline. Mucous membranes moist. Neck: Trachea midline, no thyromegaly or masses palpated, and no cervical lymphadenopathy. Supple, full range of motion without nuchal rigidity, or vertebral point tenderness. No Meningismus. Chest/axilla: Normal chest wall appearance and motion. Nontender with no deformity. No lesions are appreciated. Respiratory: Lungs have equal breath sounds bilaterally, clear to auscultation and percussion. No rales, rhonchi or wheezes noted. No increased work of breathing, no retractions or nasal flaring. Abdomen/GI: Soft, non-tender, with normal bowel sounds. No distension or tympany. No guarding or rebound. No evidence of tenderness throughout. Back: No spinal tenderness. No costovertebral tenderness. Full range of motion. Male : Normal genitalia with no discharge or lesions. Skin: Warm, dry with normal turgor. Normal color with no rashes, no lesions, and no evidence of cellulitis. MS/ Extremity: Pulses equal, no cyanosis. Neurovascular intact. Full, normal range of motion. Neuro: Awake and alert, GCS 15, oriented to person, place, time, and situation. Cranial nerves II-XII grossly intact. Motor strength 5/5 in all extremities. Sensory grossly intact. Cerebellar exam normal. Normal gait. Psych: Awake, alert, with orientation to person, place and time. Behavior, mood, and affect are within normal limits. 21:23 Cardiovascular: Rate: tachycardic, actual rate is 110 bpm, Rhythm: regular, Pulses: Pulses are 4+ in bilateral radial, brachial, femoral, popliteal, posterior tibial and and dorsalis pedis arteries.. Heart sounds: normal, Edema: is not appreciated, JVD: is not appreciated, 21:23 ECG was reviewed by the Attending Physician. Vital Signs: 20:23 BP 177 / 106; Pulse 118; Resp 16; Temp 98.3(O); Pulse Ox 99% on R/A; Weight 72.57 kg km8 (R); Height 5 ft. 3 in. (R); Pain 3/10; 21:17 BP 210 / 112; Pulse 110; Resp 16; Pulse Ox 99% on R/A; mb9 22:08 BP 181 / 123; Pulse 111; Resp 16; Pulse Ox 97% on R/A; km8 22:30 BP 182 / 102; Pulse 98; Resp 18; Pulse Ox 97% on R/A; km8 23:00 BP 183 / 102; Pulse 101; Resp 18; Pulse Ox 98% on R/A; km8 23:15 BP 178 / 104; Pulse 107; Resp 16; Pulse Ox 99% on R/A; km8 23:45 BP 178 / 104; Pulse 107; Resp 16; Pulse Ox 99% on R/A; km8 0504 00:00 BP 182 / 103; Pulse 100; Resp 16; Pulse Ox 96% on R/A; km8 00:30 BP 174 / 115; Pulse 96; Resp 16; Pulse Ox 99% on R/A; km8 00:45 BP 139 / 92; Pulse 95; Resp 16; Pulse Ox 95% on R/A; km8 01:00 BP 121 / 86; Pulse 92; Resp 16; Pulse Ox 97% on R/A; km8 01:15 BP 114 / 81; Pulse 90; Resp 16; Pulse Ox 98% on R/A; [facility] 01:30 BP 106 / 78; Pulse 89; Resp 16; Pulse Ox 98% on R/A; [facility] 01/03 20:23 Body Mass Index 28.34 (72.57 kg, 160.02 cm) [facility] 01/03 20:23 Pain Scale: Adult [facility] MDM: 01/03 20:05 Patient medically screened. judy 20:12 Patient medically screened. [facility] 21:25 Differential diagnosis: Nonspecific abd pain, gastritis, pancreatitis, viral judy gastroenteritis, gastroenteritis. Differential Diagnosis sepsis, flu. Data reviewed: nurses notes, EMS record, lab test result(s), EKG, radiologic studies, plain films. Consideration of Admission/Observation Patient was admitted/placed on observation. Escalation of care including admission/observation considered. I considered the following discharge prescriptions or medication management in the emergency department Medications were administered in the Emergency Department. See MAR. Independent interpretation of the following test(s) in the Emergency Department EKG: See my EKG interpretation above. Test considered but Not performed: Ultrasound no abd usg. 01/03 20:07 Order name: Basic Metabolic Panel; Complete Time: 21:46 [facility] 01/03 20:07 Order name: CBC with Diff; Complete Time: 22:01 [facility] 01/03 20:07 Order name: LFT's; Complete Time: 21:46 [facility] 01/03 20:07 Order name: Magnesium; Complete Time: 21:46 [facility] 01/03 20:07 Order name: NT PRO-BNP; Complete Time: 22:01 [facility] 01/03 20:07 Order name: PT-INR; Complete Time: 21:46 [facility] 01/03 20:07 Order name: Troponin HS; Complete Time: 22:01 [facility] 01/03 20:07 Order name: Lipase; Complete Time: 22:01 [facility] 01/03 20:07 Order name: Urinalysis w/ reflexes [facility] 01/03 20:07 Order name: Flu; Complete Time: 21:46 [facility] 01/03 20:07 Order name: SARS RAPID; Complete Time: 21:46 [facility] 01/03 21:13 Order name: CBC Smear Scan; Complete Time: 22:01 EDMS 01/03 21:54 Order name: Hepatitis Panel [facility] 01/03 21:55 Order name: Blood Culture Adult (2) [facility] 05/03 21:55 Order name: Lactate w/ 2H reflex if indic.; Complete Time: 23:29 judy 01/03 22:29 Order name: ABG [facility] 01/03 22:32 Order name: BMP: AFTER 2ND LITER; Complete Time: 00:31 judy 01/03 22:48 Order name: Urinalysis w/ reflexes EDMS 01/03 22:48 Order name: CBC with Automated Diff EDMS 01/03 22:48 Order name: CBC with Automated Diff EDMS 01/03 22:48 Order name: Comprehensive Metabolic Panel EDMS 01/03 22:48 Order name: Comprehensive Metabolic Panel EDMS 01/03 22:48 Order name: Magnesium EDMS 01/03 22:48 Order name: Magnesium EDMS 01/03 22:48 Order name: Phosphorus EDMS 01/03 22:48 Order name: Phosphorus EDMS 01/03 22:48 Order name: Troponin High Sensitivity EDMS 01/03 22:48 Order name: Troponin High Sensitivity; Complete Time: 00:21 EDMS 01/03 22:48 Order name: Troponin High Sensitivity EDMS 01/03 22:48 Order name: Troponin High Sensitivity EDMS 01/03 23:08 Order name: ABG Arterial Blood Gas; Complete Time: 23:29 EDMS 01/03 23:15 Order name: Glucose, Ancillary Testing; Complete Time: 23:29 EDMS 01/03 23:29 Order name: AMMONIA [facility] 01/04 00:10 Order name: Ammonia; Complete Time: 00:21 EDMS 01/03 20:07 Order name: XRAY Chest (1 view); Complete Time: 21:46 [facility] 01/03 21:54 Order name: CT Abd/Pelvis - Without Contrast; Complete Time: 23:29 [facility] 01/03 20:07 Order name: EKG; Complete Time: 20:08 [facility] 01/03 20:07 Order name: Cardiac monitoring; Complete Time: 20:28 [facility] 01/03 20:07 Order name: EKG - Nurse/Tech; Complete Time: 20:55 [facility] 01/03 20:07 Order name: IV Saline Lock; Complete Time: 20:55 [facility] 01/03 20:07 Order name: Labs collected and sent; Complete Time: 20:55 [facility] 01/03 20:07 Order name: O2 Per Protocol; Complete Time: 20:28 [facility] 01/03 20:07 Order name: O2 Sat Monitoring; Complete Time: 20:28 [facility] 01/03 23:29 Order name: IV Saline Lock - Large Bore; Complete Time: 23:35 [facility] EC: Rate is 114 beats/min. Rhythm is regular. QRS [place] is Normal. [place] interval is normal. [facility] QRS interval is normal. QT interval is normal. No Q waves. No ST changes noted. Clinical impression: Sinus tachycardia and No evidence of ischemia. Interpreted by me. Reviewed by me. Administered Medications: 21:55 Discontinued: ns 0.9% 500 ml IV at bolus once [facility] 21:02 Drug: NS 0.9% IV 500 ml IV at bolus once Route: IV; Rate: bolus; Site: right mb9 antecubital; 21:43 Follow up: IV Status: Completed infusion [facility] 21:12 Drug: NS 0.9% IV 1000 ml IV at 125 ml/hr continuous Route: IV; Rate: 125 ml/hr; Site: 9 right antecubital; 01/04 00:36 Follow up: IV Status: Completed infusion; IV Intake: 1000ml [facility] 01/03 21:43 Drug: NS 0.9% IV 1000 ml IV at 1 bolus Per protocol; 1000 mL bolus Route: IV; Rate: 1 mb9 bolus; Site: right antecubital; 23:45 Follow up: IV Status: Completed infusion; IV Intake: 1000ml [facility] :55 Drug: Ondansetron IVP 4 mg IVP once; over 2 minutes Route: IVP; Site: right antecubital;6 22:25 Drug: Labetalol IV 10 mg IV at per protocol once Route: IV; Rate: per protocol; Site: 6 right antecubital; 22:35 Follow up: IV Status: Completed infusion; IV Intake: 2.5ml [facility] 22:25 Drug: morphine IVP or IV 4 mg IVP once over 4 mins Route: IVP; Infused Over: 4 mins; 6 Site: right antecubital; 22:45 Follow up: Response: No adverse reaction; Pain is decreased [facility] 22:36 Drug: NS 0.9% IV 1000 ml IV at 1 bolus Per protocol; 1000 mL bolus Route: IV; Rate: 1 tm6 bolus; Site: right antecubital; 23:45 Follow up: IV Status: Completed infusion; IV Intake: 1000ml [facility] 22:36 Drug: levofloxacin IVPB 500 mg 100 ml IVPB once over 60 mins Volume: 100 ml; Route: tm6 IVPB; Infused Over: 60 mins; Site: left wrist; 23:36 Follow up: IV Status: Completed infusion; IV Intake: 100ml km8 22:45 Drug: Insulin Regular Human IVP 10 units IVP once {Co-Signature: km8 (Geno Salinas RN).} tm6 Route: IVP; Site: right antecubital; 23:00 Follow up: Response: No adverse reaction; Blood sugar is lowered km8 22:45 Drug: Insulin Glargine Sub-Q 30 units Sub-Q once {Co-Signature: km8 (Geno Salinas RN).} tm6 Route: Sub-Q; Site: abdomen; 23:15 Follow up: Response: No adverse reaction; Blood sugar is lowered km8 01/04 00:35 Drug: Labetalol IV 20 mg IV at per protocol once over 2 mins; repeat if sys greater km8 than 180, after 10 mg Labetalol Route: IV; Rate: per protocol; Infused Over: 2 mins; Site: right antecubital; 00:58 Follow up: Response: Blood pressure is lowered; IV Status: Completed infusion; IV km8 Intake: 5ml Disposition Summary: 01/04/24 22:07 Hospitalization Ordered Notes: Hospitalization Status: Inpatient Admission judy Provider: Jose Manuel Disla cha Location: Telemetry/[facility] (Inpatient) judy Condition: Fair judy Problem: new judy Symptoms: have improved judy Bed/Room Type: Standard [facility] Room Assignment: 230(01/04/24 22:50) rv1 Diagnosis - Dehydration judy - Vomiting judy - Diarrhea, unspecified judy - Weakness judy - Type 2 diabetes mellitus with hyperglycemia judy - Elevated white blood cell count judy Forms: - Medication Reconciliation Form judy - SBAR form judy - Leadership Thank You Letter judy Signatures: Dispatcher [employer] Sree Tovar MD MD cha Breneman, Lisa Lazo RN RN mb9 Shruthi Angelo rv1 Geno Salinas, RN RN km8 Elier You RN RN tm6 Geno Salinas RN km8 Corrections: (The following items were deleted from the chart) 01/03 20:08 20:08 BASIC METABOLIC PANEL+C.LAB.BRZ ordered. EDMS EDMS 20:08 20:08 CBC+H.LAB.BRZ ordered. EDMS EDMS 20:08 20:08 HEPATIC FUNCTION+C.LAB.BRZ ordered. EDMS EDMS 20:08 20:08 MAGNESIUM+C.LAB.BRZ ordered. EDMS EDMS 20:08 20:08 PROBNP+C.LAB.BRZ ordered. EDMS EDMS 20:08 20:08 PROTIME (+INR)+COAG.LAB.BRZ ordered. EDMS EDMS 20:08 20:08 Troponin High Sensitivity+C.LAB.BRZ ordered. EDMS EDMS 20:08 20:08 LIPASE+C.LAB.BRZ ordered. EDMS EDMS 20:08 20:08 Urinalysis+U.LAB.BRZ ordered. EDMS EDMS 20:08 20:08 Influenza Screen (A \T\ B)+BA.LAB.BRZ ordered. EDMS EDMS 20:08 20:08 SARS-COV-2 Antigen Rapid+I.LAB.BRZ ordered. EDMS EDMS 22:01 21:55 Abdomen Limited+US.RAD.BRZ ordered. EDMS EDMS 22:50 22:07 judy rv1
--- NOTE | 2024-01-04 22:08 | ER ---
Nurse's Notes [facility] Name: Ely Chisholm Age: 48 yrs Sex: Male : 1975 Arrival Date: 01/04/2024 Time: 20:01 Bed 6 Private MD: Diagnosis: Dehydration;Vomiting;Diarrhea, unspecified;Weakness;Type 2 diabetes mellitus with hyperglycemia;Elevated white blood cell count Presentation: 01/03 20:08 Note called from lobby, per family, pt is in the bathroom at this time. km8 20:23 Chief complaint: Patient states: vomiting since 0400 this AM with epigastric pain and km8 generalized weakness. Coronavirus screen: Client denies travel out of the [place] in the last 14 days. Ebola Screen: No symptoms or risks identified at this time. Initial Sepsis Screen: Does the patient meet any 2 criteria? HR > 90 bpm. No. Patient's initial sepsis screen is negative. Does the patient have a suspected source of infection? No. Patient's initial sepsis screen is negative. Risk Assessment: Do you want to hurt yourself or someone else? Patient reports no desire to harm self or others. Onset of symptoms was January 04, 2024 at 04:00. 20:23 Method Of Arrival: Wheelchair km8 20:23 Acuity: SALMA 3 km8 Triage Assessment: 20:24 General: Appears uncomfortable, ill, Behavior is cooperative, appropriate for age. km8 Pain: Complains of pain in epigastric area Pain currently is 3 out of 10 on a pain scale. at worst was 7 out of 10 on a pain scale. EENT: No signs and/or symptoms were reported regarding the EENT system. Neuro: Level of Consciousness is awake, alert, obeys commands, Oriented to person, place, time, situation. Cardiovascular: Denies chest pain, shortness of breath, Patient's skin is warm and dry. Respiratory: Airway is patent Respiratory effort is even, unlabored, Respiratory pattern is regular, symmetrical. GI: Abdomen is non-distended, Reports upper abdominal pain, diarrhea, nausea, vomiting. : No signs and/or symptoms were reported regarding the genitourinary system. Derm: No signs and/or symptoms reported regarding the dermatologic system. Skin is intact, is healthy with good turgor, Skin is dry, Skin is pink, warm \T\ dry. normal, Skin temperature is warm. Musculoskeletal: No signs and/or symptoms reported regarding the musculoskeletal system. Historical: - Allergies: 20:24 No Known Allergies; km8 - Home Meds: 20:24 aspirin 81 mg Oral TbEC 1 tab once daily [Active]; carvedilol 12.5 mg Oral tab 1 tab 2 km8 times per day [Active]; Glipizide Oral [Active]; glyburide 5 mg Oral tab 1 tab 2 times per day [Active]; pioglitazone 30 mg Oral tab 1 tab once daily [Active]; - PMHx: 20:24 Diabetes - NIDDM; Hypertension; km8 - PSHx: 20:24 Cholecystectomy; km8 - Immunization history:: Adult Immunizations up to date. - Infectious Disease History:: Denies. - Social history:: Smoking status: Patient denies any tobacco usage or history of. Patient uses alcohol, but reports only rare drinking. Patient/guardian denies using street drugs. Screenin:27 [facility] ED Fall Risk Assessment (Adult) History of falling in the last 3 months, mb9 including since admission No falls in past 3 months (0 pts) Confusion or Disorientation No (0 pts) Intoxicated or Sedated No (0 pts) Impaired Gait No (0 pts) Mobility Assist Device Used No (0 pt) Altered Elimination No (0 pt) Score/Fall Risk Level 0 - 2 = Low Risk Oriented to surroundings, Maintained a safe environment, Educated pt \T\ family on fall prevention, incl call for assistance when getting out of bed. Abuse screen: Denies threats or abuse. Nutritional screening: No deficits noted. Tuberculosis screening: No symptoms or risk factors identified. Assessment: 20:56 General: Appears in no apparent distress. Behavior is calm, cooperative. Pain: mb9 Complains of pain in abdomen Pain does not radiate. Pain currently is 8 out of 10 on a pain scale. Quality of pain is described as throbbing, Is continuous. Neuro: Perez Agitation-Sedation Scale (RASS): 0 - Alert and Calm Level of Consciousness is awake, alert, obeys commands, Oriented to person, place, time, situation, Appropriate for age. Cardiovascular: Patient's skin is warm and dry. Respiratory: Airway is patent Respiratory effort is even, unlabored, Respiratory pattern is regular, symmetrical. GI: Abdomen is flat, non-distended, Bowel sounds present X 4 quads. Abd is soft and non tender X 4 quads. Reports nausea, vomiting. : No signs and/or symptoms were reported regarding the genitourinary system. EENT: No signs and/or symptoms were reported regarding the EENT system. Derm: Skin is pink, warm \T\ dry. Musculoskeletal: Range of motion: intact in all extremities. 22:00 Reassessment: Patient appears in no apparent distress at this time. Patient and/or [facility] family updated on plan of care and expected duration. Pain level reassessed. Patient is alert, oriented x 3, equal unlabored respirations, skin warm/dry/pink. Reassessment: No changes from previously documented assessment. General: Appears in no apparent distress. Behavior is calm, cooperative. Neuro: Level of Consciousness is awake, alert, obeys commands, Oriented to person, place, time, situation. Cardiovascular: Patient's skin is warm and dry. Respiratory: Airway is patent Respiratory effort is even, unlabored, Respiratory pattern is regular, symmetrical. GI: Reports upper abdominal pain, nausea. 23:00 Reassessment: Patient appears in no apparent distress at this time. Patient and/or [facility] family updated on plan of care and expected duration. Pain level reassessed. Patient is alert, oriented x 3, equal unlabored respirations, skin warm/dry/pink. Patient states symptoms have improved. 01/04 00:00 Reassessment: Patient appears in no apparent distress at this time. No changes from [facility] previously documented assessment. Patient and/or family updated on plan of care and expected duration. Pain level reassessed. Patient is alert, oriented x 3, equal unlabored respirations, skin warm/dry/pink. Vital Signs: 01/03 20:23 BP 177 / 106; Pulse 118; Resp 16; Temp 98.3(O); Pulse Ox 99% on R/A; Weight 72.57 kg 8 (R); Height 5 ft. 3 in. (R); Pain 3/10; 21:17 BP 210 / 112; Pulse 110; Resp 16; Pulse Ox 99% on R/A; mb9 22:08 BP 181 / 123; Pulse 111; Resp 16; Pulse Ox 97% on R/A; km8 22:30 BP 182 / 102; Pulse 98; Resp 18; Pulse Ox 97% on R/A; km8 23:00 BP 183 / 102; Pulse 101; Resp 18; Pulse Ox 98% on R/A; km8 23:15 BP 178 / 104; Pulse 107; Resp 16; Pulse Ox 99% on R/A; km8 23:45 BP 178 / 104; Pulse 107; Resp 16; Pulse Ox 99% on R/A; 8 01/04 00:00 BP 182 / 103; Pulse 100; Resp 16; Pulse Ox 96% on R/A; km8 00:30 BP 174 / 115; Pulse 96; Resp 16; Pulse Ox 99% on R/A; km8 00:45 BP 139 / 92; Pulse 95; Resp 16; Pulse Ox 95% on R/A; km8 01:00 BP 121 / 86; Pulse 92; Resp 16; Pulse Ox 97% on R/A; km8 01:15 BP 114 / 81; Pulse 90; Resp 16; Pulse Ox 98% on R/A; km8 01:30 BP 106 / 78; Pulse 89; Resp 16; Pulse Ox 98% on R/A; 8 01/03 20:23 Body Mass Index 28.34 (72.57 kg, 160.02 cm) [facility] 01/03 20:23 Pain Scale: Adult [facility] ED Course: 01/03 20:03 Patient arrived in ED. mr 20:05 Sree Cantrell MD is Attending Physician. [facility] 20:24 Triage completed. [facility] 20:24 Arm band placed on right wrist. [facility] 20:26 Lisa Vital, MOMO is Primary Nurse. mb9 20:27 Placed in gown. Bed in low position. Call light in reach. Side rails up X 1. Provided mb9 Education on: press call light if needing anything. Client placed on continuous cardiac and pulse oximetry monitoring. NIBP monitoring applied. Door closed. Noise minimized. Warm blanket given. 20:45 XRAY Chest (1 view) In Process Unspecified. EDMS 20:55 SARS RAPID Sent. mb9 20:55 Flu Sent. mb9 20:55 Basic Metabolic Panel Sent. mb9 20:55 CBC with Diff Sent. mb9 20:55 LFT's Sent. mb9 20:55 Magnesium Sent. mb9 20:55 NT PRO-BNP Sent. mb9 20:55 PT-INR Sent. mb9 20:55 Troponin HS Sent. 9 20:55 No provider procedures requiring assistance completed. EKG done, by ED staff, reviewed mb9 by Lisa Vital RN. Inserted saline lock: 20 gauge in right antecubital area, using aseptic technique. ,using aseptic technique. done by Kali Blood collected. 22:05 Jose Manuel Disla MD is Hospitalizing Provider. [facility] 22:10 Inserted saline lock: 22 gauge in left wrist, using aseptic technique. Blood collected. [facility] 22:10 First set of blood cultures drawn by me. [facility] 22:13 CT Abd/Pelvis - Without Contrast In Process Unspecified. EDMS 22:30 Second set of blood cultures drawn by me. [facility] 01/04 00:57 Patient admitted, IV remains in place. [facility] Administered Medications: 01/03 21:55 Discontinued: ns 0.9% 500 ml IV at bolus once [facility] 21:02 Drug: NS 0.9% IV 500 ml IV at bolus once Route: IV; Rate: bolus; Site: right mb9 antecubital; 21:43 Follow up: IV Status: Completed infusion [facility] 21:12 Drug: NS 0.9% IV 1000 ml IV at 125 ml/hr continuous Route: IV; Rate: 125 ml/hr; Site: mb9 right antecubital; 01/04 00:36 Follow up: IV Status: Completed infusion; IV Intake: 1000ml [facility] 01/03 21:43 Drug: NS 0.9% IV 1000 ml IV at 1 bolus Per protocol; 1000 mL bolus Route: IV; Rate: 1 mb9 bolus; Site: right antecubital; 23:45 Follow up: IV Status: Completed infusion; IV Intake: 1000ml [facility] 21:55 Drug: Ondansetron IVP 4 mg IVP once; over 2 minutes Route: IVP; Site: right antecubital;tm6 22:25 Drug: Labetalol IV 10 mg IV at per protocol once Route: IV; Rate: per protocol; Site: tm6 right antecubital; 22:35 Follow up: IV Status: Completed infusion; IV Intake: 2.5ml [facility] 22:25 Drug: morphine IVP or IV 4 mg IVP once over 4 mins Route: IVP; Infused Over: 4 mins; 6 Site: right antecubital; 22:45 Follow up: Response: No adverse reaction; Pain is decreased 22:36 Drug: NS 0.9% IV 1000 ml IV at 1 bolus Per protocol; 1000 mL bolus Route: IV; Rate: 1 tm6 bolus; Site: right antecubital; 23:45 Follow up: IV Status: Completed infusion; IV Intake: 1000ml 8 22:36 Drug: levofloxacin IVPB 500 mg 100 ml IVPB once over 60 mins Volume: 100 ml; Route: tm6 IVPB; Infused Over: 60 mins; Site: left wrist; 23:36 Follow up: IV Status: Completed infusion; IV Intake: 100ml 22:45 Drug: Insulin Regular Human IVP 10 units IVP once {Co-Signature: mulu (Geno Salinas RN).} tm6 Route: IVP; Site: right antecubital; 23:00 Follow up: Response: No adverse reaction; Blood sugar is lowered 22:45 Drug: Insulin Glargine Sub-Q 30 units Sub-Q once {Co-Signature: mulu (Geno Salinas RN).} tm6 Route: Sub-Q; Site: abdomen; 23:15 Follow up: Response: No adverse reaction; Blood sugar is lowered 8 01/04 00:35 Drug: Labetalol IV 20 mg IV at per protocol once over 2 mins; repeat if sys greater km8 than 180, after 10 mg Labetalol Route: IV; Rate: per protocol; Infused Over: 2 mins; Site: right antecubital; 00:58 Follow up: Response: Blood pressure is lowered; IV Status: Completed infusion; IV km8 Intake: 5ml Medication: 01/03 20:28 VIS not applicable for this client. mb9 Intake: 22:35 IV: 3ml; Total: 3ml. km8 23:36 IV: 100ml; Total: 103ml. km8 23:45 IV: 1000ml; Total: 1103ml. km8 23:45 IV: 1000ml; Total: 2103ml. km8 01/04 00:36 IV: 1000ml; Total: 3103ml. km8 00:58 IV: 5ml; Total: 3108ml. km8 Outcome: 01/03 22:07 Decision to Hospitalize by Provider. [facility] 01/04 01:39 Admitted to Med/surg accompanied by tech, via wheelchair, room 230, with chart, km8 Condition: stable Instructed on the need for admit, Demonstrated understanding of instructions, 01:42 Patient left the ED. km8 Signatures: Dispatcher [employer] EDSree Whitten MD MD cha Rivera, Lisa, Reg Reg mr Vital, Shadia, RN RN mb9 Geno Salinas, RN RN km8 Elier You RN RN 6 Geno Salinas RN km8 Corrections: (The following items were deleted from the chart) 00:58 00:37 IV Status: Completed infusion; IV Intake: 5ml km8 km8
[2024-01-04] MEDS ORDERED: LABETALOL 20 MG/4ML SYRINGE IV ONE (22:09)
[2024-01-04] MEDS ORDERED: MORPHINE 4 MG/ML SYR ONE (22:09)
[2024-01-04] MEDS ORDERED: Levofloxacin500mg IV 500 MG/100 ML BAG IV ONE (22:09)
[2024-01-04] MEDS ORDERED: INSULIN GLARGINE 100 UNIT/ML SQ ONE ×2 (22:11→22:28)
--- NOTE | 2024-01-04 22:20 | P.HP ---
Certification for Inpatient Patient admitted to: Inpatient With expected LOS: >2 Midnights Practitioner: I am a practitioner with admitting privileges, knowledge of patient current condition, hospital course, and medical plan of care. Services: Services provided to patient in accordance with Admission requirements found in Title 42 Section 412.3 of the Code of Federal Regulations Patient History Date of Service: 01/04/24 Reason for admission: Generalized weakness History of Present Illness: 48 yrs old Male with past medical history of diabetes, hypertension, hyperlipidemia who came to ER with generalized weakness associated with nausea and vomiting and diarrhea which has been going on for the last 2 days and has been progressively worsening.The symptoms are aggravated by food , Denies any fever or chills. No headache. Denies any dysuria. No sick contacts No previous history of DKA Patient was assessed in the ER and is found to have severe hypoglycemic and borderline anion gap and is admitted for further management Allergies No Known Allergies Allergy (Unverified 10/19/20 15:09) Home medications list reviewed: Yes Home Medications: Carvedilol [Coreg] 1 tab PO BID 10/19/20 Glipizide [Glipizide Xl] 1 tab PO BID 10/19/20 Losartan Potassium 1 tab PO BID 10/19/20 Pioglitazone HCl 1 tab PO DAILY 10/19/20 - Past Medical/Surgical History Diabetic: Yes Past Medical History: Reviewed- Non-Contributory -: DM IDDM -: Cellulitis, left groin -: YOAN -: 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 Past Surgical History: Reviewed- Non-Contributory -: debridement of left groin wound - Family History Family History: Reviewed- Non-Contributory - Social History Smoking Status: Current some day smoker Alcohol use: No Review of Systems 10-point ROS is otherwise unremarkable Physical Examination - Vital Signs Temperature: 98.4 F Blood Pressure: 162/98 Pulse: 78 Respirations: 18 Pulse Ox (%): 94 - Physical Exam General: Alert, In no apparent distress, Oriented x3 HEENT: Atraumatic, Normocephalic Neck: Supple, 2+ carotid pulse no bruit Respiratory: Clear to auscultation bilaterally, Normal air movement Cardiovascular: Normal pulses, Regular rate/rhythm, Normal S1 S2 Capillary refill: <2 Seconds Gastrointestinal: Soft and benign, Non-distended, W/out hepatosplenomegaly Musculoskeletal: No clubbing, No swelling Integumentary: No rashes, No breakdown Neurological: Normal tone, Cranial nerves 3-12 intact, Normal affect Lymphatics: No axilla or inguinal lymphadenopathy - Studies Laboratory Data (last 24 hrs) 01/04/24 01/04/24 01/04/24 20:48 20:48 20:48 WBC 20.90 H Hgb 14.0 Hct 41.9 Plt Count 174 PT 13.6 H INR 1.24 Sodium Potassium BUN Creatinine Glucose Magnesium Total Bilirubin AST ALT Alkaline Phosphatase Lipase 16 01/04/24 20:48 WBC Hgb Hct Plt Count PT INR Sodium 131 L Potassium 4.6 BUN 16 Creatinine 1.71 H Glucose 524 H* Magnesium 2.1 Total Bilirubin 0.9 AST 93 H ALT 172 H Alkaline Phosphatase 140 H Lipase Microbiology Data (last 24 hrs): 01/04/24 20:37 Nasopharnyx Influenza Type A Antigen Screen - Final 01/04/24 20:37 Nasopharnyx Influenza Type B Antigen Screen - Final Assessment and Plan - Problems (Diagnosis) (1) Diabetes mellitus with hyperglycemia Current Visit: Yes Status: Acute (2) Diabetes Current Visit: No Status: Acute Plan: Diabetes with hyperglycemia Insulin sliding scale Will get an A1c in a.m. Monitor vital signs Accu-Chek q. ACH S Will start on basal insulin Borderline anion gap noted Will get BMP serially Leukocytosis Will obtain cultures Started on empiric antibiotic Change antibiotic as per sensitivity Acute kidney injury Renal parameters monitor Electrolytes monitor replace accordingly Lactic acidosis Aggressive hydration Empiric antibiotic Obtain cultures Elevated LFTs Will monitor LFTs in a.m. Hypercalcemia Aggressive hydration GI/DVT prophylaxis Advanced directive full code Discharge Plan: Home Plan to discharge in: 48 Hours - Advance Directives Does patient have a Living Will: No Does patient have a Durable POA for Healthcare: No Time Spent Managing Pts Care (In Minutes): 48
[2024-01-04 23:07] LABS: Arterial Blood Carboxyhemoglob 0.8 % (0-1.5); Blood Gas Oxyhemoglobin 91.5 % (94-97); Blood Gas THB 12.7 g/dl (12-18); Blood O2 Saturation 94.1 % (92-98.5)
--- NOTE | 2024-01-04 23:08 | RAD REPORT ---
EXAM DESCRIPTION: CTAbdomen Pelvis Wo Contrast - 01/04/2024 10:11 pm CLINICAL HISTORY: ABD PAIN COMPARISON: Abdomen Pelvis W Contrast dated 03/11/2020; Abdomen Pelvis Wo Contrast dated 09/13/2018 TECHNIQUE: CT of the abdomen and pelvis was performed. All CT scans are performed using dose optimization technique as appropriate and may include automated exposure control or mA/KV adjustment according to patient size. FINDINGS: Lower chest: No acute abnormality. Liver: Nodular liver contour. No focal mass is appreciated. Biliary: No biliary ductal dilatation. Cholecystectomy Stomach: No significant focal abnormality. Duodenum: No significant focal abnormality. Pancreas: No significant abnormality. Spleen: No significant abnormality. Adrenal: No suspicious lesions. Kidney/ureter: No hydronephrosis. No renal calculi. Retroperitoneum: No retroperitoneal adenopathy. Vascular: No aneurysm. Bowel: No appendicitis.. Peritoneum: No ascites or free air. Bladder: Distended bladder. Reproductive: No adnexal masses. Bones: No acute fracture. Other: n/a IMPRESSION: No acute intra-abdominal or pelvic finding. Normal appendix. Question cirrhosis.
[2024-01-04] MEDS: INSULIN GLARGINE 100 UNIT/ML SQ SCH (23:51)
[2024-01-05 00:21] LABS: Anion Gap 10.8 mEq/L (5.0-15.0); Potassium 3.8 mEq/L (3.5-5.1)
[2024-01-05] MEDS ORDERED: LABETALOL 20 MG/4ML SYRINGE IV ONE (00:28)
[2024-01-05 00:36] LABS: Hepatitis B Core IgM Reactive (Nonreactive); Hepatitis B surface AG Interp. Reactive (Nonreactive); Hepatitis C Virus Ab Nonreactive (Nonreactive)
[2024-01-05 00:45] LABS: HBsAG High Reactive Report Report
[2024-01-05 01:13] LABS: Sqamous Epithelial <5 /HPF (None Seen); Urine Bacteria None Seen /HPF (<20); Urine Bilirubin NEGATIVE (Negative); Urine Blood Negative (Negative); Urine Clarity Clear (Clear); Urine Color Colorless (Yellow); Urine Crystals Unidentified Few /HPF (None Seen); Urine Culture Reflex Order NOT NEEDED; Urine Glucose 4+ (Over) (Negative); Urine Ketones 1+ (Negative); Urine Microscopic Reflex YN ORDER UMIC; Urine Nitrite NEGATIVE (Negative); Urine Protein NEGATIVE (Negative); Urine RBC <5 /HPF (None Seen); Urine Urobilinogen Normal (Normal); Urine WBC <5 /HPF (<5)
[2024-01-05] MEDS: NA CHLORIDE 0.9% 1,000 ML IV SCH (02:03)
[2024-01-05] MEDS: PIPER TAZO 3.375 GM in NA CHLORIDE 0.9% 100 ML IV SCH (02:04)
[2024-01-05 07:01] LABS: Absolute Basophils 0.1 K/uL (0-0.5); Absolute Lymphocytes (CBC) 2.7 K/uL (0.7-4.9); Absolute Monocytes 1.8 K/uL (0.1-1.3); Absolute Neutrophil 16.3 K/uL (1.8-8.0); Basophils % 0.4 % (0-1.3); Hematocrit 34.5 % (39.6-49.0); Hemoglobin 11.7 g/dL (13.6-17.9); Lymphocytes % 12.8 % (15.3-44.8); MCH 29.8 pg (27.0-35.0); MCHC 34.1 g/dL (32.0-36.0); MCV 87.4 fL (80-100); MPV 9.9 fL (7.6-11.3); Monocytes % 8.6 % (3.3-12.3); Neutrophils % 78.2 % (41.7-73.7); Platelets 147 thou/uL (152-406); RBC Red Blood Cell Count 3.94 M/uL (4.33-5.43); Red Cell Distribution Width 14.4 % (12.1-15.2)
[2024-01-05 07:20] LABS: Albumin 2.7 g/dL (3.4-5.0); Albumin/Globulin Ratio 0.6 (1.1-1.8); Anion Gap 8.3 mEq/L (5.0-15.0); Bilirubin Total 0.6 mg/dL (0.2-1.0); Globulin 4.6 g/dL (2.3-3.5); Phosphorus 2.9 mg/dL (2.5-4.9); Potassium 4.3 mEq/L (3.5-5.1); Protein, Total 7.3 g/dL (6.4-8.2)
[2024-01-05] MEDS: INSULIN REGULAR (HUMAN) 100 UNIT/ML SQ SCH ×2 (09:07→16:19)
[2024-01-05] MEDS: ENOXAPARIN 40 MG/0.4 ML SQ SCH (09:08)
[2024-01-05] MEDS: ACETAMINOPHEN 325 MG TABLET PO PRN (09:09)
--- NOTE | 2024-01-05 12:00 | P.PN ---
Subjective Date of Service: 01/05/24 Chief Complaint: Generalized weakness Patient states he feels much better today and looking forward to go home. He denies any nausea or vomiting, he is tolerating diet. He denies any abdominal pain or diarrhea. He has been afebrile since admission. Physical Examination - Vital Signs Temperature: 97.3 F Blood Pressure: 157/96 Pulse: 90 Respirations: 14 Pulse Ox (%): 97 - Studies Laboratory Data (last 24 hrs) 01/04/24 01/04/24 01/04/24 20:48 20:48 20:48 WBC 20.90 H Hgb 14.0 Hct 41.9 Plt Count 174 PT 13.6 H INR 1.24 Sodium Potassium BUN Creatinine Glucose Magnesium Total Bilirubin AST ALT Alkaline Phosphatase Lipase 16 01/04/24 20:48 WBC Hgb Hct Plt Count PT INR Sodium 131 L Potassium 4.6 BUN 16 Creatinine 1.71 H Glucose 524 H* Magnesium 2.1 Total Bilirubin 0.9 AST 93 H ALT 172 H Alkaline Phosphatase 140 H Lipase Microbiology Data (last 24 hrs): 01/04/24 20:37 Nasopharnyx Influenza Type A Antigen Screen - Final 01/04/24 20:37 Nasopharnyx Influenza Type B Antigen Screen - Final Assessment And Plan - Plan Physical Exam General: Alert, In no apparent distress, Oriented x3 HEENT: Anicteric sclera Neck: Supple, no elevated JVD Respiratory: Clear to auscultation bilaterally, Normal air movement Cardiovascular: Normal pulses, Regular rate/rhythm, Normal S1 S2 Gastrointestinal: Soft and benign, Non-distended, W/out hepatosplenomegaly Musculoskeletal: No clubbing, No swelling Integumentary: No rashes, No breakdown Neurological: No focal motor deficit. Assessment and Plan Diagnosis Diabetes mellitus with hyperglycemia Leukocytosis Hepatitis B infection Liver cirrhosis Acute kidney Lactic acidosis Plan: Diabetes with hyperglycemia Continue insulin sliding scale and Lantus insulin. Accu-Cheks Check hemoglobin A1c Status post IV hydration Blood sugar readings improving. Leukocytosis No improvement from yesterday Cultures are pending Continue empiric antibiotic Acute kidney injury Resolved with IV hydration Lactic acidosis Likely secondary to a combination of hypoglycemia and decreased lactic acid metabolism due to liver cirrhosis. Significantly improved with IV hydration. Continue IV fluid Follow cultures to rule out sepsis. Elevated LFTs Likely related to hepatitis B infection and liver cirrhosis. Outpatient follow-up Hypercalcemia Likely secondary to dehydration. Calcium level has improved to normal with IV hydration. Hepatitis B infection Unknown if active or chronic infection or chronic carrier Follow-up with GI as outpatient. Discussed contact tracing and testing, spouse testing, immunizations and protection. Patient will also need MRI of the liver on liver biopsy as outpatient. DVT prophylaxis: Lovenox Advanced directive: full code
[2024-01-05] MEDS: ONDANSETRON 4 MG/2 ML VIAL IV PRN (14:12)
[2024-01-05] MEDS: MORPHINE 2 MG/ML SYR IV PRN (14:12)
[2024-01-05 15:02] VITALS: BMI 28.7
[2024-01-05] MEDS: PROMETHAZINE INJ 25 MG/ML AMP IV PRN (15:54)
[2024-01-05] MEDS: LOSARTAN POTASSIUM 50 MG TABLET PO SCH (15:54)
[2024-01-05] MEDS: carvediloL 12.5 MG TAB PO SCH (15:55)
[2024-01-05] MEDS: HYDRALAZINE HCL 20 MG/ML VIAL IV PRN (16:51)
[2024-01-05] MEDS: HYDRALAZINE HCL 20 MG/ML VIAL IV ONE (20:22)
[2024-01-06] MEDS: METOCLOPRAMIDE 10 MG/2mL INJ IV ONE (01:22)
[2024-01-06 03:24] LABS: Absolute Basophils 0.1 K/uL (0-0.5); Absolute Lymphocytes (CBC) 2.3 K/uL (0.7-4.9); Absolute Monocytes 1.1 K/uL (0.1-1.3); Absolute Neutrophil 13.9 K/uL (1.8-8.0); Basophils % 0.5 % (0-1.3); Hematocrit 35.8 % (39.6-49.0); Hemoglobin 11.7 g/dL (13.6-17.9); Lymphocytes % 13.1 % (15.3-44.8); MCH 28.5 pg (27.0-35.0); MCHC 32.6 g/dL (32.0-36.0); MCV 87.3 fL (80-100); Monocytes % 6.3 % (3.3-12.3); Neutrophils % 80.1 % (41.7-73.7); Platelets 156 thou/uL (152-406); Red Cell Distribution Width 14.5 % (12.1-15.2)
[2024-01-06 03:41] LABS: Anion Gap 8.2 mEq/L (5.0-15.0); Potassium 3.2 mEq/L (3.5-5.1)
[2024-01-06] MEDS: KCL 20 MEQ/100 mL IVPB 20 MEQ/100 ML BAG IV SCH (05:50)
[2024-01-06] MEDS: NIFEDIPINE XL 60 MG TABLET PO SCH (08:54)
[2024-01-06 09:08] LABS: Albumin 2.6 g/dL (3.4-5.0); Albumin/Globulin Ratio 0.6 (1.1-1.8); Bilirubin Direct 0.2 mg/dL (0-0.2); Bilirubin Indirect, Calculated 0.3 mg/dL (0.2-0.8); Bilirubin Total 0.5 mg/dL (0.2-1.0); Globulin 4.4 g/dL (2.3-3.5)
[2024-01-06 09:32] VITALS: O2SAT 95
--- NOTE | 2024-01-06 13:40 | P.PN ---
Subjective Date of Service: 01/06/24 Chief Complaint: Generalized weakness Patient had an episode of hypoglycemia this morning. He reported abdominal pain yesterday. Oral intake has decreased, he denies any nausea vomiting or diarrhea. He also complained of chest pain this afternoon and his systolic blood pressure was elevated to the 200 He has been afebrile since admission. Physical Examination - Vital Signs Temperature: 97.3 F Blood Pressure: 226/117 Pulse: 91 Respirations: 16 Pulse Ox (%): 98 Assessment And Plan - Plan Physical Exam General: Alert, In no apparent distress, Oriented x3 HEENT: Anicteric sclera Neck: Supple, no elevated JVD Respiratory: Clear to auscultation bilaterally, Normal air movement Cardiovascular: Normal pulses, Regular rate/rhythm, Normal S1 S2 Gastrointestinal: Soft and benign, Non-distended, no hepatosplenomegaly. Musculoskeletal: No swelling Integumentary: No rashes, No breakdown Neurological: No focal motor deficit. Assessment and Plan Diagnosis Diabetes mellitus with hyperglycemia Leukocytosis Hepatitis B infection Liver cirrhosis Acute kidney Lactic acidosis Plan: Diabetes with hyperglycemia Continue insulin sliding scale and Lantus insulin.. Hemoglobin A1c is pending. Patient had episode of hypoglycemia this morning. Lantus insulin discontinue Leukocytosis Improving slowly. Blood cultures yielded no growth Continue empiric antibiotics. Acute kidney injury Resolved with IV hydration Lactic acidosis Likely secondary to a combination of hyperglycemia and decreased lactic acid metabolism due to liver cirrhosis. Significantly improved with IV hydration. Continue IV fluid Blood cultures are negative. Elevated LFTs Mild elevation. Likely related to hepatitis B infection and liver cirrhosis. Acute hepatitis not likely. Outpatient follow-up Hypercalcemia Likely secondary to dehydration. Hypercalcemia resolved with IV hydration. Hepatitis B infection Unknown if active or chronic infection or chronic carrier Follow-up with GI as outpatient. Discussed contact tracing and testing, spouse testing, immunizations and protection. Patient will also need MRI of the liver or liver biopsy as outpatient. Hypertensive urgency Hydralazine IV as needed for BP spikes. Continue home antihypertensives-Coreg and nifedipine. Chest pain Negative troponin, EKG shows no ischemic changes. Monitor. DVT prophylaxis: Lovenox Advanced directive: full code
[2024-01-06] MEDS: METOCLOPRAMIDE 10 MG/2mL INJ IV SCH (19:23)
[2024-01-07 08:08] LABS: Absolute Basophils 0.1 K/uL (0-0.5); Absolute Lymphocytes (CBC) 3.4 K/uL (0.7-4.9); Absolute Monocytes 1.2 K/uL (0.1-1.3); Absolute Neutrophil 9.7 K/uL (1.8-8.0); Basophils % 0.4 % (0-1.3); Eosinophils % 0.1 % (0-4.4); Hematocrit 37.1 % (39.6-49.0); Hemoglobin 12.6 g/dL (13.6-17.9); Lymphocytes % 23.7 % (15.3-44.8); MCH 29.4 pg (27.0-35.0); MCHC 33.9 g/dL (32.0-36.0); MCV 86.9 fL (80-100); MPV 9.7 fL (7.6-11.3); Monocytes % 8.4 % (3.3-12.3); Neutrophils % 67.4 % (41.7-73.7); Platelets 175 thou/uL (152-406); RBC Red Blood Cell Count 4.27 M/uL (4.33-5.43)
[2024-01-07 08:11] LABS: Anion Gap 8.3 mEq/L (5.0-15.0); Potassium 3.3 mEq/L (3.5-5.1)
[2024-01-07] MEDS ORDERED: MORPHINE 4 MG/ML SYR IV PRN (09:45)
[2024-01-07] MEDS: POTASSIUM CL SA 10 MEQ TAB PO ONE (10:25)
[2024-01-07] MEDS: MAGNESIUM HYDROXIDE 8% 30 ML PO ONE (13:30)
--- NOTE | 2024-01-07 14:41 | EKG ---
Test Date: 2024-01-06 Test Time: 12:28:52 Circular Saw Filer: MARIE Lew MEASUREMENT RESULTS: Intervals: Rate: 98 ND: 212 QRSD: 76 QT: 386 QTc: 492 [place]: P: 66 ND: 212 QRS: -30 T: 37 INTERPRETIVE STATEMENTS: Sinus rhythm with 1st degree AV block Left axis deviation Prolonged QT Abnormal ECG Compared to ECG 01/04/2024 20:52:03 First degree AV block now present Left-axis deviation now present Prolonged QT interval now present Sinus tachycardia no longer present Ventricular premature complex(es) no longer present Electronically Signed On 01-07-24 14:38:00 CDT by Ronald Washington
--- NOTE | 2024-01-07 14:45 | EKG ---
Test Date: 2024-01-04 Test Time: 20:52:03 Security Team Lead: MB MEASUREMENT RESULTS: Intervals: Rate: 114 ND: 156 QRSD: 74 QT: 356 QTc: 490 [place]: P: 85 ND: 156 QRS: -17 T: 70 INTERPRETIVE STATEMENTS: Sinus tachycardia with occasional premature ventricular complexes Otherwise normal ECG Compared to ECG 09/13/2018 15:44:28 Ventricular premature complex(es) now present Sinus rhythm no longer present T-wave abnormality no longer present Electronically Signed On 01-07-24 14:39:39 CDT by Ronald Washington
[2024-01-07 16:32] VITALS: BP 142/86; TEMP 96.9
--- NOTE | 2024-01-07 18:25 | P.DS ---
Admission Date: 01/04/24 Discharge Date: 01/07/24 Disposition: ROUTINE DISCHARGE Discharge Condition: FAIR Reason for Admission: Generalized weakness Hospital Course: Diagnosis Diabetes mellitus with hyperglycemia Leukocytosis Hepatitis B infection Liver cirrhosis Acute kidney Lactic acidosis 48 yrs old Male with past medical history of diabetes, hypertension, hyperlipidemia presented with generalized weakness associated with nausea and vomiting and diarrhea. Nausea and vomiting aggravated by eating Patient was assessed in the ER and is found to have severe hyperglycemic and borderline anion gap and was admitted for further management Patient was admitted to the medical floor and treated with hyperglycemia Lantus insulin and insulin sliding scale. His home oral hypoglycemic were held during the hospital stay. He developed an episode of hypoglycemia so Lantus insulin was discontinued. Patient initially had poor oral intake due to the nausea and vomiting. He also had hiccups which contributed to the vomiting. His symptoms improved after initiating Reglan for possible gastroparesis. Patient has tolerated solid diet today. He had severe leukocytosis which improved with IV Zosyn. Blood culture yielded no growth. UA did not suggest the presence of UTI. Patient had acute kidney injury which resolved with IV hydration. CT abdomen and pelvis suggested liver cirrhosis. Patient reported history of fatty liver. He was positive for hepatitis B surface antigen. Given the presence of liver cirrhosis patient suspected to have chronic hepatitis B, unknown if active or passive. He is referred to GI Dr. Chavez for further evaluation as outpatient. Vital Signs/Physical Exam: Temp Pulse Resp BP Pulse Ox 96.9 F 83 14 142/86 H 97 01/07/24 16:00 01/07/24 16:00 01/07/24 16:00 01/07/24 16:00 01/07/24 16:00 General: Alert, In no apparent distress, Oriented x3 HEENT: Mucous membr. moist/pink Neck: Supple, JVD not distended Respiratory: Clear to auscultation bilaterally, Normal air movement Cardiovascular: No edema, Regular rate/rhythm, Normal S1 S2 Gastrointestinal: Normal bowel sounds, Soft and benign, Non-distended, No tenderness Musculoskeletal: No swelling Integumentary: No rashes, No cyanosis Neurological: Normal strength at 5/5 x4 extr Laboratory Data at Discharge: WBC 14.50 thou/uL (4.3-10.9) H 01/07/24 07:43 Hgb 12.6 g/dL (13.6-17.9) L 01/07/24 07:43 Hct 37.1 % (39.6-49.0) L 01/07/24 07:43 Plt Count 175 thou/uL (152-406) 01/07/24 07:43 PT 13.6 SECONDS (9.5-12.5) H 01/04/24 20:48 INR 1.24 01/04/24 20:48 Sodium 136 mEq/L (136-145) 01/07/24 07:43 Potassium 3.3 mEq/L (3.5-5.1) L 01/07/24 07:43 BUN 11 mg/dL (7-18) 01/07/24 07:43 Creatinine 0.94 mg/dL (0.70-1.30) 01/07/24 07:43 Glucose 86 mg/dL (74-106) 01/07/24 07:43 Phosphorus 2.9 mg/dL (2.5-4.9) 01/05/24 06:45 Magnesium 2.0 mg/dL (1.6-2.4) 01/05/24 06:45 Total Bilirubin 0.5 mg/dL (0.2-1.0) 01/06/24 03:06 AST 79 U/L (15-37) H 01/06/24 03:06 ALT 124 U/L (16-61) H 01/06/24 03:06 Alkaline Phosphatase 96 U/L (45-117) 01/06/24 03:06 Lipase 16 U/L (13-75) 01/04/24 20:48 Home Medications: Carvedilol [Coreg] 1 tab PO BID 10/19/20 Losartan Potassium 1 tab PO BID 10/19/20 Pioglitazone HCl 1 tab PO DAILY 10/19/20 Ciprofloxacin HCl [Cipro] 500 mg PO BID #10 tab 01/07/24 Metoclopramide [Reglan] 5 mg PO TID #30 tab 01/07/24 Nifedipine Xl [Procardia XL*] 60 mg PO DAILY #30 tab 01/07/24 Sennosides [Senokot] 17.2 mg PO DAILY #30 tab 01/07/24 metroNIDAZOLE [Flagyl] 500 mg PO Q8H #15 tab 01/07/24 New Medications: Ciprofloxacin HCl [Cipro] 500 mg PO BID #10 tab metroNIDAZOLE [Flagyl] 500 mg PO Q8H #15 tab Nifedipine Xl [Procardia XL*] 60 mg PO DAILY #30 tab Metoclopramide [Reglan] 5 mg PO TID #30 tab Sennosides [Senokot] 17.2 mg PO DAILY #30 tab Physician Discharge Instructions: 48 yrs old Male with past medical history of diabetes, hypertension, hyperlipidemia presented with generalized weakness associated with nausea and vomiting and diarrhea. Nausea and vomiting aggravated by eating Patient was assessed in the ER and is found to have severe hyperglycemic and borderline anion gap and was admitted for further management Patient was admitted to the medical floor and treated with hyperglycemia Lantus insulin and insulin sliding scale. His home oral hypoglycemic were held during the hospital stay. He developed an episode of hypoglycemia so Lantus insulin was discontinued. Patient initially had poor oral intake due to the nausea and vomiting. He also had hiccups which contributed to the vomiting. His symptoms improved after initiating Reglan for possible gastroparesis. Patient has tolerated solid diet today. He had severe leukocytosis which improved with IV Zosyn. Blood culture yielded no growth. UA did not suggest the presence of UTI. Patient had acute kidney injury which resolved with IV hydration. CT abdomen and pelvis suggested liver cirrhosis. Patient reported history of fatty liver. He was positive for hepatitis B surface antigen. Given the presence of liver cirrhosis patient suspected to have chronic hepatitis B, unknown if active or passive. He is referred to GI Dr. Chavez for further evaluation as outpatient. Diet: ADA Activity: Ad gi Followup: Kelsey Tuttle DO, DO [Primary Care Provider] - 1 Week Mando Chavez MD [ACTIVE - CAN ADMIT] - 1-2 Weeks (Please call office for an appointment regarding your liver disease.) Time spent managing pt's care (in minutes): 35
== END 2024-01-07 19:09 | disposition home or self-care (01) | DRG 638 ==
LOC: ER 20:01 → ERHOLD 22:43 → 2ND 01-05 00:53
PROVIDERS: ADMIT Family Medicine; ATTEND Internal Medicine
PROC: 4A033R1 Measurement of Arterial Saturation, Peripheral, Percutaneous Approach (ICD-10-PCS; principal; 2024-01-04)
DX: E11.65 Type 2 diabetes mellitus with hyperglycemia (principal); B18.1 Chronic viral hepatitis B without delta-agent; E87.20 Acidosis, unspecified; N17.9 Acute kidney failure, unspecified; E11.43 Type 2 diabetes mellitus with diabetic autonomic (poly)neuropathy; K31.84 Gastroparesis; E11.649 Type 2 diabetes mellitus with hypoglycemia without coma; I10 Essential (primary) hypertension; E86.0 Dehydration; I16.0 Hypertensive urgency; E83.52 Hypercalcemia; K74.60 Unspecified cirrhosis of liver; E78.5 Hyperlipidemia, unspecified; D72.829 Elevated white blood cell count, unspecified; F17.200 Nicotine dependence, unspecified, uncomplicated; R79.89 Other specified abnormal findings of blood chemistry; Z11.52 Encounter for screening for COVID-19; Z79.82 Long term (current) use of aspirin; Z79.84 Long term (current) use of oral hypoglycemic drugs; Z79.02 Long term (current) use of antithrombotics/antiplatelets; Z90.49 Acquired absence of other specified parts of digestive tract; Z79.899 Other long term (current) drug therapy
CPT/HCPCS: 36415; 71045; 74176; 80048; 80053; 80074; 80076; 81001; 82140; 82805; 82947; 83036; 83605; 83690; 83735; 83880; 84100; 84484; 85025; 85610; 87040; 87804; 87811; 93005; 96372; 99285; J0360; J1650; J1815; J2270; J2405; J2543; J2550; J2765; J3480; J7030; J7040

== ENCOUNTER 2024-01-28 08:26 | Emergency (ER) | payer OTHER ==
--- OUTSIDE RECORDS SUMMARY | 2024-01-28 08:29 | XMS REPORT | Continuity of Care Document ---
Author Name Unknown Address [address] [place] [address] thconnect Address [address] [place] [address] Care Team Providers Care Workforce Development Specialist Name Role Phone Unavailable Unavailable Unavailable
[2024-01-28] MEDS ORDERED: LIDOCAINE 1% MPF 5 ML VIAL ONE (08:45)
[2024-01-28] MEDS ORDERED: TDAP (DIPHTH,PERTUSS(ACELL),TET VAC) 0.5 ML VIAL IMVAC ONE (08:48)
--- NOTE | 2024-01-28 09:43 | ER ---
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 ll1 Bleeding controlled with dressing in place. Coronavirus screen: Client denies travel out of the [place] in the last 14 days. At this time, the client does not indicate any symptoms associated with coronavirus-19. Ebola Screen: Patient denies travel to an Ebola-affected area in the 21 days before illness onset. Complicating Factors: There are no complicating factors for this patient. Initial Sepsis Screen: Does the patient meet any 2 criteria? No. Patient's initial sepsis screen is negative. Does the patient have a suspected source of infection? No. Patient's initial sepsis screen is negative. Risk Assessment: Do you want to hurt yourself or someone else? Patient reports no desire to harm self or others. Onset of symptoms was January 28, 2024. 08:44 Method Of Arrival: Ambulatory ll1 08:44 Acuity: SALMA 4 ll1 Triage Assessment: 08:45 General: Appears in no apparent distress. Behavior is calm, cooperative, appropriate ll1 for age. Pain: Denies pain. Derm: Reports laceration L hand. Injury Description: Laceration. Historical: - Allergies: 08:43 No Known Allergies; ll1 - PMHx: 08:43 Diabetes - NIDDM; Hypertension; Anemia; ll1 - PSHx: 08:43 Cholecystectomy; ll1 - Immunization history:: Adult Immunizations up to date, Last tetanus immunization: unknown. - Infectious Disease History:: Denies. - Social history:: Smoking status: Patient denies any tobacco usage or history of. - Family history:: not pertinent. Screenin:06 [facility] ED Fall Risk Assessment (Adult) History of falling in the last 3 months, mb9 including since admission No falls in past 3 months (0 pts) Confusion or Disorientation No (0 pts) Intoxicated or Sedated No (0 pts) Impaired Gait No (0 pts) Mobility Assist Device Used No (0 pt) Altered Elimination No (0 pt) Score/Fall Risk Level 0 - 2 = Low Risk Oriented to surroundings, Maintained a safe environment, Educated pt \T\ family on fall prevention, incl call for assistance when getting out of bed. Abuse screen: Denies threats or abuse. Nutritional screening: No deficits noted. Tuberculosis screening: No symptoms or risk factors identified. Assessment: 10:05 Reassessment: No changes from previously documented assessment. Patient and/or family mb9 updated on plan of care and expected duration. Pain level reassessed. Patient is alert, oriented x 3, equal unlabored respirations, skin warm/dry/pink. Vital Signs: 08:44 BP 120 / 84; Pulse 86; Resp 15; Temp 97.3; Pulse Ox 97% ; Weight 62.14 kg; Height 5 ft. ll1 3 in. ; Pain 0/10; 08:44 Body Mass Index 24.27 (62.14 kg, 160.02 cm) ll1 08:44 Pain Scale: Adult ll1 ED Course: 08:32 Patient arrived in ED. ra3 08:33 Arm band placed on Patient placed in an exam room, on a stretcher. ll1 08:35 Gurinder Soto MD is Attending Physician. rt 08:39 Monse Chavez, MOMO is Primary Nurse. ko1 08:45 Triage completed. ll1 09:45 Bed in low position. Call light in reach. Side rails up X 1. mb9 10:05 Assist provider with laceration repair on left hand that was between 2.6 to 7.5 cm mb9 using sutures. Set up tray. Performed by Gurinder Soto MD Dressed with 4X4s, Xeroform, Patient tolerated well. Patient did not have IV access during this emergency room visit. Administered Medications: 09:12 Drug: Boostrix Tdap IM 0.5 ml IM once; as a single dose Route: IM; Site: left deltoid; hb 09:22 Drug: Lidocaine Infiltration (1 %) 5 ml 5 ml Infiltration once; to bedside {Note: given ko1 by Dr Soto.} Volume: 5 ml; Route: Infiltration; Outcome: 09:42 Discharge ordered by MD. rt 10:05 Discharged to home ambulatory, mb9 10:05 Condition: stable 10:05 Discharge instructions given to patient, Instructed on discharge instructions, follow up and referral plans. Demonstrated understanding of instructions, follow-up care, 10:06 Patient left the ED. mb9 Signatures: Leighann El, RN RN Ashwin Mercado RN RN ll1 Monse Chavez RN RN ko1 Lisa Vital RN RN mb9 Gurinder Soto MD MD rt Tess Childress ra3
--- NOTE | 2024-01-28 09:43 | EDPHYS ---
Physician Documentation [facility] Name: Ely Chisholm Age: 48 yrs Sex: Male : 1975 Arrival Date: 01/28/2024 Time: 08: Bed 6 Private MD: ED Physician Gurinder Soto HPI: 01/27 08:53 This 48 yrs old Black Male presents to ER via Ambulatory with complaints of Laceration rt To Hand. 08:53 Patient presents to the ED with a laceration to the left hand. Patient Comes in with a rt knife just prior to arrival. The laceration is between the first and second digits. Denies active bleeding, significant pain. Denies other acute complaints, symptoms are mild in severity, no other aggravating or alleviating factors.. Historical: - Allergies: 08:43 No Known Allergies; ll1 - PMHx: 08:43 Diabetes - NIDDM; Hypertension; Anemia; ll1 - PSHx: 08:43 Cholecystectomy; ll1 - Immunization history:: Adult Immunizations up to date, Last tetanus immunization: unknown. - Infectious Disease History:: Denies. - Social history:: Smoking status: Patient denies any tobacco usage or history of. - Family history:: not pertinent. ROS: 08:53 Constitutional: Negative for fever, chills, and weight loss, Skin: Negative for injury, rt rash, and discoloration, Neuro: Negative for headache, weakness, numbness, tingling, and seizure, Psych: Negative for depression, anxiety, suicide ideation, homicidal ideation, and hallucinations, 08:53 MS/extremity: Positive for laceration, Negative for decreased range of motion, deformity, Exam: 08:53 Constitutional: This is a well developed, well nourished patient who is awake, alert, rt and in no acute distress. Head/Face: Normocephalic, atraumatic. Chest/axilla: Normal chest wall appearance and motion. Nontender with no deformity. No lesions are appreciated. Cardiovascular: Regular rate and rhythm with a normal S1 and S2. No gallops, murmurs, or rubs. Normal PMI, no JVD. No pulse deficits. Respiratory: Lungs have equal breath sounds bilaterally, clear to auscultation and percussion. No rales, rhonchi or wheezes noted. No increased work of breathing, no retractions or nasal flaring. Abdomen/GI: Soft, non-tender, with normal bowel sounds. No distension or tympany. No guarding or rebound. No evidence of tenderness throughout. Skin: Warm, dry with normal turgor. Normal color with no rashes, no lesions, and no evidence of cellulitis. Neuro: Awake and alert, GCS 15, oriented to person, place, time, and situation. Cranial nerves II-XII grossly intact. Motor strength 5/5 in all extremities. Sensory grossly intact. Cerebellar exam normal. Normal gait. 08:53 Musculoskeletal/extremity: 4 cm laceration at the first webspace. Muscle bodies, tendons do not appear to be involved. Patient is able to oppose the thumb, flex all digits without difficulty. No active bleeding. Pulses, motor, sensation intact.. Vital Signs: 08:44 BP 120 / 84; Pulse 86; Resp 15; Temp 97.3; Pulse Ox 97% ; Weight 62.14 kg; Height 5 ft. ll1 3 in. ; Pain 0/10; 08:44 Body Mass Index 24.27 (62.14 kg, 160.02 cm) ll1 08:44 Pain Scale: Adult ll1 Laceration: 09:42 Wound Repair of 4cm ( 1.6in ) subcutaneous laceration to left hand. Linear shaped.. rt Distal neuro/vascular/tendon intact. Anesthesia: Local anesthetic administered with 2 mls of 1% lidocaine. Wound prep: Copious irrigation. Skin closed with 9 4-0 Prolene using simple sutures and sterile technique. Patient tolerated well. MDM: 08:37 Patient medically screened. rt 09:42 Differential diagnosis: superficial laceration, tendon injury. Data reviewed: vital rt signs, nurses notes. Test considered but Not performed: Other Details No physical exam signs to suggest tendon, muscle involvement, x-rays, imaging not indicated. Counseling: I had a detailed discussion with the patient and/or guardian regarding the historical points, exam findings, and any diagnostic results supporting the discharge/admit diagnosis, the need for outpatient follow up, to return to the emergency department if symptoms worsen or persist or if there are any questions or concerns that arise at home. Response to treatment: the patient's symptoms have markedly improved after treatment. 01/27 08:42 Order name: Dressing - Wound; Complete Time: 09:22 rt 01/27 08:42 Order name: Gloves, Sterile; Complete Time: 08:46 rt 01/27 08:42 Order name: Setup Suture Tray; Complete Time: 08:46 rt 01/27 08:42 Order name: Wound Care; Complete Time: 09:22 rt Administered Medications: 09:12 Drug: Boostrix Tdap IM 0.5 ml IM once; as a single dose Route: IM; Site: left deltoid; 09:22 Drug: Lidocaine Infiltration (1 %) 5 ml 5 ml Infiltration once; to bedside {Note: given ko1 by Dr Soto.} Volume: 5 ml; Route: Infiltration; Disposition Summary: 01/28/24 09:42 Discharge Ordered Notes: Location: Home rt Problem: new rt Symptoms: have improved rt Condition: Stable rt Diagnosis - Laceration to left hand rt Followup: rt - With: Private Physician - When: 10 - 14 days - Reason: Staple/Suture removal Discharge Instructions: - Discharge Summary Sheet ll1 - Laceration Care, Adult rt Forms: - Work release form ll1 - Medication Reconciliation Form rt - Antibiotic Education rt - Prescription Opioid Use rt - Patient Portal Instructions rt - Leadership Thank You Letter rt Signatures: Leighann El, RN RN Ashwin Mercado RN RN [email or web address] Monse Chavez, MOMO RN ko1 Gurinder Soto MD MD rt
[2024-01-28 10:34] VITALS: BP 120/84; TEMP 97.3; O2SAT 97
== END 2024-01-28 10:06 | disposition home or self-care (01) ==
LOC: ER 08:26
PROC: 0HQGXZZ Repair Left Hand Skin, External Approach (ICD-10-PCS; principal; 2024-01-28)
DX: S61.412A Laceration without foreign body of left hand, initial encounter (principal)
CPT/HCPCS: 96372; 99284; 12002; J2001; 12001

== ENCOUNTER 2024-02-16 11:34 | Emergency (ER) | payer OTHER ==
--- OUTSIDE RECORDS SUMMARY | 2024-02-16 11:36 | XMS REPORT | Continuity of Care Document ---
Author Name Unknown Address [address] [place] [address] thconnect Address [address] [place] [address] Care Team Providers Care Telescope Maintenance Name Role Phone Unavailable Unavailable Unavailable
--- NOTE | 2024-02-16 12:44 | ER ---
Nurse's Notes [facility] Name: Ely Chisholm Age: 48 yrs Sex: Male : 1975 Arrival Date: 02/16/2024 Time: 11:34 Bed DX3 Private MD: Diagnosis: Encounter for removal of sutures Presentation: 02/15 12:13 Chief complaint: Patient states: Sutures to L hand, in area between index finger and ph thumb x weeks, states, " I came last week but the doctor said it was still open in part of it.". Coronavirus screen: Vaccine status: Patient reports being unvaccinated. Ebola Screen: No symptoms or risks identified at this time. Initial Sepsis Screen: Does the patient meet any 2 criteria? No. Patient's initial sepsis screen is negative. Does the patient have a suspected source of infection? No. Patient's initial sepsis screen is negative. Risk Assessment: Do you want to hurt yourself or someone else? Patient reports no desire to harm self or others. Onset of symptoms was February 16, 2024. 12:13 Method Of Arrival: Ambulatory ph 12:13 Acuity: SALMA 5 ph Historical: - Allergies: 12:15 No Known Allergies; ph - PMHx: 12:15 Anemia; Diabetes - NIDDM; Hypertension; ph - PSHx: 12:15 Cholecystectomy; ph Vital Signs: 12:13 BP 138 / 87; Pulse 85; Resp 18; Temp 97.8; Pulse Ox 98% ; ph ED Course: 11:35 Patient arrived in ED. rg4 11:39 Carmelo Bowles MD is Attending Physician. ec2 12:15 Triage completed. ph 12:15 Arm band placed on. ph 12:52 No provider procedures requiring assistance completed. Patient did not have IV access hb during this emergency room visit. Administered Medications: No medications were administered Outcome: 12:43 Discharge ordered by . ec2 12:52 Discharged to home ambulatory, hb 12:52 Condition: stable 12:52 Discharge instructions given to patient, Instructed on discharge instructions, follow up and referral plans. Demonstrated understanding of instructions, follow-up care, 12:52 Patient left the ED. hb Signatures: Moira Sanchez RN RN ph Leighann El RN RN Leia Campbell rg4 Bowles, Carmelo, MD MD ec2
--- NOTE | 2024-02-16 12:44 | EDPHYS ---
Physician Documentation [facility] Name: Ely Chisholm Age: 48 yrs Sex: Male : 1975 Arrival Date: 02/16/2024 Time: 11:34 Bed DX3 Private MD: ED Physician Carmelo Bowles HPI: 02/15 12:43 This 48 yrs old Black Male presents to ER via Ambulatory with complaints of Suture ec2 Removal. 12:43 Patient arrives today for evaluation of his sutures. Sutures are placed 2 weeks ago. No ec2 issues.. Historical: - Allergies: 12:15 No Known Allergies; ph - PMHx: 12:15 Anemia; Diabetes - NIDDM; Hypertension; ph - PSHx: 12:15 Cholecystectomy; ph ROS: 12:43 Constitutional: as per hpi ec2 Exam: 12:43 Constitutional: GEN: NAD Head: atraumatic Eyes: EOMI Ears: External ears are ec2 normal. CV: regular rate LUNGS: no respiratory distress ABD: non-distended SKIN: Well-healed laceration with sutures in place. MSK: no evidence of trauma NEURO: moves all extremities equally Vital Signs: 12:13 BP 138 / 87; Pulse 85; Resp 18; Temp 97.8; Pulse Ox 98% ; ph Procedures: 12:44 Suture/Staple removal: Removed 9 sutures, from left hand, site appears well healed, ec2 Patient tolerated well. MDM: 12:43 Patient medically screened. ec2 12:45 Data reviewed: vital signs. ED course: Well-appearing individual here for suture ec2 removal. Sutures removed x 9 without issue. Discharged home. Return precautions given.. 02/15 11:55 Order name: Suture Removal; Complete Time: 12:18 ec2 Administered Medications: No medications were administered Disposition Summary: 02/16/24 12:43 Discharge Ordered Notes: Location: Home ec2 Condition: Stable ec2 Diagnosis - Encounter for removal of sutures ec2 Followup: ec2 - With: Emergency Department - When: - Reason: If symptoms return Discharge Instructions: - Discharge Summary Sheet ec2 - Suture Removal, Care After ec2 Forms: - Medication Reconciliation Form ec2 - Antibiotic Education ec2 - Prescription Opioid Use ec2 - Patient Portal Instructions ec2 - Leadership Thank You Letter ec2 Signatures: Sanchez, Moira, RN RN ph Bowles, Carmelo, MD MD ec2
[2024-02-16 13:11] VITALS: BP 138/87; TEMP 97.8; O2SAT 98
== END 2024-02-16 12:52 | disposition home or self-care (01) ==
LOC: ER 11:34
DX: Z48.02 Encounter for removal of sutures (principal)
CPT/HCPCS: 99282

== ENCOUNTER 2024-03-05 19:54 | Emergency (ER) | payer OTHER ==
--- OUTSIDE RECORDS SUMMARY | 2024-03-05 19:57 | XMS REPORT | Continuity of Care Document ---
Author Name Unknown Address [address] [place] [address] thconnect Address [address] [place] [address] Care Team Providers Care Scientific Helper Name Role Phone Unavailable Unavailable Unavailable
[2024-03-05] MEDS ORDERED: ONDANSETRON 4 MG/2 ML VIAL ONE (20:53)
[2024-03-05] MEDS ORDERED: MORPHINE 4 MG/ML SYR ONE (20:53)
[2024-03-05] MEDS ORDERED: NA CHLORIDE 0.9% 1,000 ML ONE (20:54)
[2024-03-05] MEDS ORDERED: LABETALOL 20 MG/4ML SYRINGE IV ONE (21:10)
[2024-03-05 21:29] LABS: Hematocrit 38.4 % (39.6-49.0); MCH 29.4 pg (27.0-35.0); MCHC 33.8 g/dL (32.0-36.0); MCV 87.1 fL (80-100); MPV 10.1 fL (7.6-11.3); Nucleated Red Blood Cells % 0.1 % (0-0); Platelets 195 thou/uL (152-406); Red Cell Distribution Width 18.6 % (12.1-15.2)
[2024-03-05 22:32] LABS: Band Neutrophils 1 % (0-1); Blood Morphology Comment NOT SEEN (NOT SEEN); Differential Total Cells Count 100; Lymphocytes 7 % (15-42); Monocytes 5 % (0-10); Platelet Estimate ADEQ; Segmented Neutrophils 82 % (40-80)
[2024-03-05] MEDS ORDERED: NA CHLORIDE 0.9% 250 ML ONE (23:31)
[2024-03-05] MEDS ORDERED: DIPHENHYDRAMINE 50 MG/ML VIAL ONE (23:31)
[2024-03-05] MEDS ORDERED: METOCLOPRAMIDE 10 MG/2mL INJ ONE (23:31)
[2024-03-06 00:14] LABS: Anion Gap 9.5 mEq/L (5.0-15.0); Potassium 5.5 mEq/L (3.5-5.1)
[2024-03-06] MEDS ORDERED: LOSARTAN POTASSIUM 50 MG TABLET ONE (00:19)
[2024-03-06 00:21] LABS: Sqamous Epithelial None Seen /HPF (None Seen); Urine Bacteria <20 /HPF (<20); Urine Bilirubin NEGATIVE (Negative); Urine Blood 2+ (Negative); Urine Clarity Clear (Clear); Urine Color Light-Yellow (Yellow); Urine Culture Reflex Order NOT NEEDED; Urine Glucose 4+ (Over) (Negative); Urine Ketones NEGATIVE (Negative); Urine Microscopic Reflex YN ORDER UMIC; Urine Nitrite NEGATIVE (Negative); Urine Protein 1+ (Negative); Urine RBC <5 /HPF (None Seen); Urine Urobilinogen Normal (Normal); Urine WBC <5 /HPF (<5); Urine pH 5.5 (5.0-7.0)
[2024-03-06 00:31] LABS: Albumin/Globulin Ratio 0.3 (1.1-1.8); Bilirubin Total 2.4 mg/dL (0.2-1.0); Globulin 7.1 g/dL (2.3-3.5); Protein, Total 9.1 g/dL (6.4-8.2); Troponin High Sensitivity 7.1 pg/mL (<58.9)
[2024-03-06 02:06] LABS: PT Prothrombin Time 15.7 SECONDS (9.4-12.5); PTT, Activated Partial Thromb 30.4 SECONDS (24.3-36.9); Protime INR 1.44
[2024-03-06] MEDS ORDERED: NA CHLORIDE 0.9% 100 ML ONE (02:10)
[2024-03-06] MEDS ORDERED: PIPERACIL/TAZO 3.375 GM VIAL IV ONE (02:11)
[2024-03-06] MEDS ORDERED: NA CHLORIDE 0.9% 1,000 ML ONE (02:11)
--- NOTE | 2024-03-06 02:13 | ER ---
Nurse's Notes [facility] Name: Ely Chisholm Age: 48 yrs Sex: Male : 1975 Arrival Date: 03/05/2024 Time: 19:54 Bed 4 Private MD: Diagnosis: Colitis;Sepsis;Transaminitis Presentation: 03/05 20:02 Chief complaint: Patient states: n/v abdominal pain that started today. pt reports as6 anything that he tries to eat or drink comes back up. Coronavirus screen: At this time, the client does not indicate any symptoms associated with coronavirus-19. Ebola Screen: No symptoms or risks identified at this time. Initial Sepsis Screen: Does the patient meet any 2 criteria? No. Patient's initial sepsis screen is negative. Does the patient have a suspected source of infection? No. Patient's initial sepsis screen is negative. Risk Assessment: Do you want to hurt yourself or someone else? Patient reports no desire to harm self or others. Onset of symptoms was March 05, 2024. 20:02 Acuity: SALMA 3 as6 20:02 Method Of Arrival: Wheelchair as6 Triage Assessment: 20:03 General: Appears uncomfortable, ill, Behavior is calm, cooperative. Pain: Complains of as6 pain in abdomen. GI: Reports lower abdominal pain, upper abdominal pain, intolerance of fluids, intolerance of food, nausea, vomiting. Historical: - Allergies: 20:02 No Known Allergies; as6 - PMHx: 20:02 Anemia; Diabetes - NIDDM; Hypertension; as6 - PSHx: 20:02 Cholecystectomy; as6 - Immunization history:: Adult Immunizations up to date. - Infectious Disease History:: Denies. - Social history:: Smoking status: Patient denies any tobacco usage or history of. - Family history:: not pertinent. Screenin:05 [facility] ED Fall Risk Assessment (Adult) History of falling in the last 3 months, kd3 including since admission No falls in past 3 months (0 pts) Confusion or Disorientation No (0 pts) Intoxicated or Sedated No (0 pts) Impaired Gait No (0 pts) Mobility Assist Device Used No (0 pt) Altered Elimination No (0 pt) Score/Fall Risk Level 0 - 2 = Low Risk Oriented to surroundings. Abuse screen: Denies threats or abuse. Denies injuries from another. Nutritional screening: No deficits noted. Tuberculosis screening: No symptoms or risk factors identified. Assessment: 21:04 General: Appears ill, Behavior is calm, cooperative. Pain: Complains of pain in abdomen kd3 Pain currently is 4 out of 10 on a pain scale. Neuro: Level of Consciousness is awake, alert, obeys commands. Cardiovascular: Patient's skin is warm and dry. Respiratory: Airway is patent Trachea midline Respiratory effort is even, unlabored, Respiratory pattern is regular, symmetrical. GI: Reports lower abdominal pain, upper abdominal pain, diarrhea, nausea, vomiting. 23:02 General: Called for the second time to lab to inquire about pt's blood work results. kd3 Lab is currently having an issue with the analyzer but are running his blood work now. Pt has still failed to provide a urine sample. . 23:37 General: awaiting recollect on green top to result to perform CT scan. Urine collected. kd3 . 07/04 00:23 General: PT continues to be drowsy and slow to respond to questioning. Pt is alert and kd3 oriented x 4, respirations are even and unlabored, skin is warm and dry. Pt vital signs are stable with the exceptions of constantly high blood pressure. Pt medicated for nausea and administered his usual home dose of losartan. Pt continues to await lab results so his CT can be performed. No further requests at this time. . 03:00 Reassessment: Patient and/or family updated on plan of care and expected duration. Pain rg5 level reassessed. Patient is alert, oriented x 3, equal unlabored respirations, skin warm/dry/pink. 04:17 Reassessment: Patient and/or family updated on plan of care and expected duration. Pain kd3 level reassessed. Patient is alert, oriented x 3, equal unlabored respirations, skin warm/dry/pink. Patient states feeling better. Patient states symptoms have improved. General: Pt cleaned of incontinence, fresh sheets and blankets provided. . 05:04 General: Repeat lactate collected and sent to lab. PT updated on transfer. Pt VSS. Pt kd3 reports improvement of symptoms. report provided to EMS. . Neuro: Level of Consciousness is awake, alert, obeys commands, Oriented to person, place, time, situation. Cardiovascular: Patient's skin is warm and dry. Respiratory: Airway is patent Trachea midline Respiratory effort is even, unlabored, Respiratory pattern is regular, symmetrical. Vital Signs: 03/05 20:01 BP 208 / 110; Pulse 93; Resp 18; Temp 98; Pulse Ox 99% ; Weight 63.5 kg; Height 5 ft. 3 as6 in. ; Pain 4/10; 21:05 BP 215 / 118; Pulse 95; Resp 16; Pulse Ox 99% on R/A; kd3 21:43 BP 205 / 113; Pulse 86; Resp 19; Pulse Ox 99% on R/A; kd3 22:16 BP 198 / 112; Pulse 84; Resp 15; Pulse Ox 100% on R/A; kd3 03/06 00:16 BP 187 / 110; Pulse 95; Resp 16; Pulse Ox 99% on R/A; kd3 01:10 BP 193 / 108; Pulse 101; Resp 19; Pulse Ox 99% on R/A; kd3 03:41 BP 184 / 94; Pulse 103; Resp 19; Pulse Ox 99% on R/A; kd3 04:33 BP 148 / 102; Pulse 98; Resp 16; Pulse Ox 98% on R/A; kd3 05:03 BP 137 / 91; Pulse 96; Resp 17; Pulse Ox 99% on R/A; kd3 03/05 20:01 Body Mass Index 24.80 (63.50 kg, 160.02 cm) as6 03/05 20:01 Pain Scale: Adult as6 ED Course: 03/05 19:56 Patient arrived in ED. mr 20:00 Gurinder Soto MD is Attending Physician. rt 20:01 Arm band placed on left wrist. as6 20:03 Triage completed. as6 20:47 Rona Crocker, MOMO is Primary Nurse. kd3 21:05 Patient has correct armband on for positive identification. kd3 21:18 Troponin HS Sent. kd3 21:18 CBC with Diff Sent. kd3 21:18 CMP Sent. kd3 21:18 Inserted saline lock: 20 gauge in right hand, using aseptic technique. Blood collected. kd3 Missed attempt(s): 20 gauge in right antecubital area. 22:56 Inserted saline lock: 18 gauge in left upper arm, using aseptic technique. ,using bm8 aseptic technique. with ultrasound. 03/06 00:47 CT Abd/Pelvis - IV Contrast Only In Process Unspecified. EDMS 02:20 called to initiate transfer with [facility] spoke with Codi from transfer center. vk 03:00 No provider procedures requiring assistance completed. IV is patent, is intact. rg5 04:55 initiated transfer with transfer center [facility] spoke with codi/ patient was accepted to [facility] to Bed #7301 per Codi/ called [facility] EMT stated it would be about 2 hours/ [facility] stated they could flower picker in 20-30 mins. 05:03 Provided Education on: repeat lactate . 3 05:03 Patient transferred, IV remains in place. kd3 Administered Medications: 03/05 21:19 Drug: NS 0.9% IV 1000 ml IV at 1 bolus Per protocol; 1000 mL bolus Route: IV; Rate: 1 kd3 bolus; Site: right hand; 21:19 Drug: Ondansetron IVP 4 mg IVP once; over 2 minutes Route: IVP; Site: right hand; [facility] 03/06 04:08 Follow up: Response: No adverse reaction [facility] 03/05 21:19 Drug: morphine IVP or IV 4 mg IVP once over 4 mins Route: IVP; Infused Over: 4 mins; [facility] Site: right hand; 03/06 04:08 Follow up: Response: Pain is decreased [facility] 03/05 21:20 Drug: Labetalol IV 10 mg IV at calculated rate once Route: IV; Rate: calculated rate; [facility] Site: right hand; 03/06 04:07 Follow up: IV Status: Completed infusion [facility] 03/05 23:35 Drug: metoCLOPramide IVP 10 mg IVP once; over 1 to 2 minutes Route: IVP; Site: left [facility] upper arm; 03/06 04:07 Follow up: Response: No adverse reaction [facility] 03/05 23:35 Drug: diphenhydrAMINE IVP 25 mg IVP once Route: IVP; Site: left upper arm; [facility] 03/06 04:06 Follow up: Response: No adverse reaction [facility] 00:23 Drug: Losartan PO 50 mg PO once Route: PO; [facility] 04:06 Follow up: Response: Blood pressure is lowered [facility] 02:21 Drug: Piperacillin-Tazobactam IVPB 3.375 grams IVPB once over 60 mins; (mix in NS 100 rg5 mL) Route: IVPB; Infused Over: 60 mins; Site: left antecubital; 04:06 Follow up: IV Status: Completed infusion rg5 02:21 Drug: NS 0.9% IV 1000 ml IV at 1 bolus Per protocol; 1000 mL bolus Route: IV; Rate: 1 rg5 bolus; Site: left antecubital; 04:05 Follow up: IV Status: Completed infusion rg5 Medication: 03/05 21:04 VIS not applicable for this client. kd3 Outcome: 03/06 02:13 ER care complete, transfer ordered by . rt 05:03 Transferred by ground EMS kd3 05:03 Condition: stable 05:03 Condition: stable 05:03 Discharge instructions given to patient, family, Instructed on the need for transfer, Demonstrated understanding of instructions, 05:06 Patient left the ED. kd3 Signatures: Dispatcher [employer] EDMS Lisa Feldman, Reg Reg Nahun Sherwood, RN RN as6 Rona Crocker, RN RN kd3 Gurinder Soto MD MD rt Lata Garcia Brad, RN RN bm8 Esteban Salas, RN RN rg5
--- NOTE | 2024-03-06 02:13 | EDPHYS ---
Physician Documentation [facility] Name: Ely Chisholm Age: 48 yrs Sex: Male : 1975 Arrival Date: 03/05/2024 Time: 19:54 Bed 4 Private MD: ED Physician Gurinder Soto HPI: 03/05 20:16 This 48 yrs old Black Male presents to ER via Wheelchair with complaints of Weakness, rt Vomiting. 20:16 Patient presents to the ED with abdominal pain, nausea vomiting, generalized weakness rt starting this morning at about 8 this morning. The patient had a similar episode about 2 months ago, was admitted to the hospital for it. Denies other acute complaints at this time, symptoms are moderate in severity, no other aggravating or alleviating factors.. Historical: - Allergies: 20:02 No Known Allergies; as6 - PMHx: 20:02 Anemia; Diabetes - NIDDM; Hypertension; as6 - PSHx: 20:02 Cholecystectomy; as6 - Immunization history:: Adult Immunizations up to date. - Infectious Disease History:: Denies. - Social history:: Smoking status: Patient denies any tobacco usage or history of. - Family history:: not pertinent. ROS: 20:16 Constitutional: Negative for fever, chills, and weight loss, Cardiovascular: Negative rt for chest pain, palpitations, and edema, Respiratory: Negative for shortness of breath, cough, wheezing, and pleuritic chest pain, MS/Extremity: Negative for injury and deformity, Skin: Negative for injury, rash, and discoloration, Neuro: Negative for headache, weakness, numbness, tingling, and seizure, 20:16 Abdomen/GI: Positive for abdominal pain, nausea and vomiting, Exam: 20:16 Constitutional: This is a well developed, well nourished patient who is awake, alert, rt and in no acute distress. Head/Face: Normocephalic, atraumatic. Chest/axilla: Normal chest wall appearance and motion. Nontender with no deformity. No lesions are appreciated. Cardiovascular: Regular rate and rhythm with a normal S1 and S2. No gallops, murmurs, or rubs. Normal PMI, no JVD. No pulse deficits. Respiratory: Lungs have equal breath sounds bilaterally, clear to auscultation and percussion. No rales, rhonchi or wheezes noted. No increased work of breathing, no retractions or nasal flaring. Skin: Warm, dry with normal turgor. Normal color with no rashes, no lesions, and no evidence of cellulitis. MS/ Extremity: Pulses equal, no cyanosis. Neurovascular intact. Full, normal range of motion. Neuro: Awake and alert, GCS 15, oriented to person, place, time, and situation. Cranial nerves II-XII grossly intact. Motor strength 5/5 in all extremities. Sensory grossly intact. Cerebellar exam normal. Normal gait. 20:16 Abdomen/GI: Tenderness to the lower quadrants without rebound, guarding, distention, 21:04 ECG was reviewed by the Attending Physician. rt Vital Signs: 20:01 BP 208 / 110; Pulse 93; Resp 18; Temp 98; Pulse Ox 99% ; Weight 63.5 kg; Height 5 ft. 3 as6 in. ; Pain 4/10; 21:05 BP 215 / 118; Pulse 95; Resp 16; Pulse Ox 99% on R/A; kd3 21:43 BP 205 / 113; Pulse 86; Resp 19; Pulse Ox 99% on R/A; kd3 22:16 BP 198 / 112; Pulse 84; Resp 15; Pulse Ox 100% on R/A; kd3 07/04 00:16 BP 187 / 110; Pulse 95; Resp 16; Pulse Ox 99% on R/A; kd3 01:10 BP 193 / 108; Pulse 101; Resp 19; Pulse Ox 99% on R/A; kd3 03:41 BP 184 / 94; Pulse 103; Resp 19; Pulse Ox 99% on R/A; kd3 04:33 BP 148 / 102; Pulse 98; Resp 16; Pulse Ox 98% on R/A; kd3 05:03 BP 137 / 91; Pulse 96; Resp 17; Pulse Ox 99% on R/A; kd3 07/ 20:01 Body Mass Index 24.80 (63.50 kg, 160.02 cm) as6 03/05 20:01 Pain Scale: Adult as6 MDM: 03/05 20:05 Patient medically screened. rt 03/06 02:13 Data reviewed: vital signs, nurses notes, lab test result(s), EKG, radiologic studies. rt Consideration of Admission/Observation Escalation of care including admission/observation considered. Discussed with hospitalist to request transfer for GI coverage. Independent interpretation of the following test(s) in the Emergency Department CT Scan: My interpretation is No bowel obstruction seen on interpretation of CT scan images. Test considered but Not performed: Ultrasound Status postcholecystectomy,right upper quadrant ultrasound not needed. Care significantly affected by the following chronic conditions: Diabetes, Hypertension. Counseling: I had a detailed discussion with the patient and/or guardian regarding the historical points, exam findings, and any diagnostic results supporting the discharge/admit diagnosis, lab results, radiology results, the need to transfer to another facility. Response to treatment: the patient's symptoms have markedly improved after treatment. 02:15 ED course: Patient's initial presentation was not thought to be due to infectious rt etiology, thought to be due to gastroparesis. Once infectious etiology (colitis) was identified, blood cultures, lactate were ordered, antibiotics were given.. 04:45 Post IV fluid administration reassessment for Sepsis: Client prescribed 30 mL/kg IVF. rt Sepsis focused reassessment complete. Focused assessment performed: March 06, 2024 at 04:45 Capillary refill examination performed. Capillary refill noted to be brisk. Skin examination performed. Skin examination noted to be unremarkable. Cardio: Cardiovascular exam improved from previous exam. Heart rate and blood pressure have improved. 03/05 20:06 Order name: CBC with Diff; Complete Time: 22:54 rt 03/05 20:06 Order name: CMP; Complete Time: 00:33 rt 03/05 20:06 Order name: Lipase; Complete Time: 00:33 rt 03/05 20:06 Order name: Urinalysis w/ reflexes; Complete Time: 00:31 rt 03/05 20:06 Order name: Troponin HS; Complete Time: 00:33 rt 03/05 22:30 Order name: Manual Differential; Complete Time: 22:54 EDMS 03/06 01:38 Order name: Blood Culture Adult (2) rt 03/06 01:38 Order name: Lactate w/ 2H reflex if indic.; Complete Time: 02:39 rt 03/06 01:38 Order name: Protime (+inr); Complete Time: 02:39 rt 03/06 01:38 Order name: Ptt, Activated; Complete Time: 02:39 rt 03/06 04:28 Order name: Glucose, Ancillary Testing; Complete Time: 04:31 EDMS 03/06 04:39 Order name: Ghost Lactate-NO COLLECT Timer; Complete Time: 04:59 EDMS 03/05 20:06 Order name: CT Abd/Pelvis - IV Contrast Only rt 03/06 01:38 Order name: EKG; Complete Time: 01:39 rt 03/05 20:06 Order name: IV Saline Lock; Complete Time: 21:08 rt 03/05 20:06 Order name: Labs collected and sent; Complete Time: 21:18 rt 03/05 20:07 Order name: Cardiac monitoring; Complete Time: 21:08 rt 03/05 20:07 Order name: EKG - Nurse/Tech; Complete Time: 21:08 rt 03/05 20:07 Order name: O2 Per Protocol; Complete Time: 21:08 rt 03/05 20:07 Order name: O2 Sat Monitoring; Complete Time: 21:08 rt 03/05 23:13 Order name: Misc. Order: RECOLLECT LIGHT GREEN ; Complete Time: 23:17 rv1 03/06 01:38 Order name: Accucheck; Complete Time: 02:08 rt 03/06 01:38 Order name: IV Saline Lock - Large Bore; Complete Time: 02:08 rt 03/06 01:38 Order name: Vital Signs; Complete Time: 02:08 rt EC/03 21:04 Rate is 94 beats/min. Rhythm is regular, Normal Sinus Rhythm with No ectopy. QRS [place] rt is Normal. NE interval is normal. QRS interval is normal. QT interval is normal. No Q waves. T waves are Normal. No ST changes noted. Interpreted by me. Administered Medications: 21:19 Drug: NS 0.9% IV 1000 ml IV at 1 bolus Per protocol; 1000 mL bolus Route: IV; Rate: 1 kd3 bolus; Site: right hand; 21:19 Drug: Ondansetron IVP 4 mg IVP once; over 2 minutes Route: IVP; Site: right hand; kd3 03/06 04:08 Follow up: Response: No adverse reaction 03/05 21:19 Drug: morphine IVP or IV 4 mg IVP once over 4 mins Route: IVP; Infused Over: 4 mins; kd3 Site: right hand; 03/06 04:08 Follow up: Response: Pain is decreased 03/05 21:20 Drug: Labetalol IV 10 mg IV at calculated rate once Route: IV; Rate: calculated rate; kd3 Site: right hand; 03/06 04:07 Follow up: IV Status: Completed infusion rg5 03/05 23:35 Drug: metoCLOPramide IVP 10 mg IVP once; over 1 to 2 minutes Route: IVP; Site: left 3 upper arm; 03/06 04:07 Follow up: Response: No adverse reaction rg5 03/05 23:35 Drug: diphenhydrAMINE IVP 25 mg IVP once Route: IVP; Site: left upper arm; kd3 03/06 04:06 Follow up: Response: No adverse reaction rg5 00:23 Drug: Losartan PO 50 mg PO once Route: PO; kd3 04:06 Follow up: Response: Blood pressure is lowered rg5 02:21 Drug: Piperacillin-Tazobactam IVPB 3.375 grams IVPB once over 60 mins; (mix in NS 100 rg5 mL) Route: IVPB; Infused Over: 60 mins; Site: left antecubital; 04:06 Follow up: IV Status: Completed infusion rg5 02:21 Drug: NS 0.9% IV 1000 ml IV at 1 bolus Per protocol; 1000 mL bolus Route: IV; Rate: 1 rg5 bolus; Site: left antecubital; 04:05 Follow up: IV Status: Completed infusion rg5 Disposition Summary: 03/06/24 02:13 Transfer Ordered Notes: Transfer Location: [facility] rt Reason: Higher level of care rt Condition: Stable rt Problem: new rt Symptoms: have improved rt Accepting Physician: (03/06/24 05:06) kd3 Diagnosis - Colitis rt - Sepsis rt - Transaminitis rt Forms: - Medication Reconciliation Form rt - SBAR form rt Critical care time excluding procedures: 02:13 Critical care time: Bedside Care: 30 minutes, Consultation: 5 minutes. Total time: 35 rt minutes Signatures: Dispatcher [employer] Nahun Amaya RN RN as6 Rona Crocker RN RN kd3 Gurinder Soto MD MD rt Shruthi Angelo rv1 Esteban Salas RN RN rg5 Corrections: (The following items were deleted from the chart) 03/05 20:07 20:07 CBC+H.LAB.BRZ ordered. EDMS EDMS 20:07 20:07 COMPREHENSIVE METABOLIC PANEL+C.LAB.BRZ ordered. EDMS EDMS 20:07 20:07 LIPASE+C.LAB.BRZ ordered. EDMS EDMS 20:07 20:07 Urinalysis+U.LAB.BRZ ordered. EDMS EDMS 20:07 20:07 Troponin High Sensitivity+C.LAB.BRZ ordered. EDMS EDMS 20:07 20:07 Abdomen Pelvis W Con+CT.RAD.BRZ ordered. EDMS EDMS 03/06 05:06 02:13 Dr. briggs kd3
[2024-03-06 05:43] VITALS: BP 137/91; TEMP 98; O2SAT 99
--- NOTE | 2024-03-06 17:04 | RAD REPORT ---
EXAM DESCRIPTION: CT - Abdomen Pelvis W Contrast - 03/06/2024 6:48 am CLINICAL HISTORY: 48 years Male, ABD PAIN TECHNIQUE: Helical CT axial images are obtained from the lung bases to the pubic symphysis with IV c ontrast. No oral contrast was administered. Multiplanar reconstruction. This exam was performed accor ding to our departmental dose-optimization program, which includes automated exposure control, adjust ment of the mA and/or kV according to patient size and/or use of iterative reconstruction technique. COMPARISON: 01/04/2024 FINDINGS: LUNG BASES: No basilar consolidation or effusions. LIVER: Normal in size. Normal attenuation. No focal masses. HEPATOBILIARY: Status post cholecystectomy. No intra- or extrahepatic ductal dilatation. SPLEEN: Normal size. PANCREAS: Normal size and contour. No focal mass. ADRENAL GLANDS: Normal size. No adrenal masses. KIDNEYS: Bilateral kidneys are normal in size without obstructing calculi or hydronephrosis. No nep hrolithiasis. No significant cysts are present. No focal solid mass. BOWEL AND MESENTERY: Mild diffuse wall thickening of the colon. Trace pelvic free fluid. No small or large bowel dilatation. No colonic diverticulosis. Normal appendix. No abnormal mesenteric lymphade nopathy. No pneumoperitoneum. RETROPERITONEUM: Normal caliber abdominal aorta without aneurysm. No abnormal retroperitoneal lymphad enopathy. PELVIS: Urinary bladder is unremarkable. Normal-sized prostate gland. ABDOMINAL WALL: The abdominal wall is intact. BONES: No suspicious osseous lytic or blastic lesions seen. IMPRESSION: 1. Mild diffuse wall thickening of the colon, suggestive of colitis. 2. Trace pelvic free fluid, likely reactive. 3. Status post cholecystectomy. Electronically signed by: Tommie Craft MD 03/06/2024 01:28 AM CDT N Due to temporary technical issues with the PACS/Fluency reporting system, reports are being signed by the in house radiologists without review as a courtesy to insure prompt reporting. The interpreting radiologist is fully responsible for the content of the report.
--- NOTE | 2024-03-09 10:35 | EKG ---
Test Date: 2024-03-05 Test Time: 20:59:40 Global Engineering Manager: GREG MEASUREMENT RESULTS: Intervals: Rate: 94 ND: 56 QRSD: 74 QT: 386 QTc: 482 [place]: P: 74 ND: 56 QRS: -15 T: 62 INTERPRETIVE STATEMENTS: Sinus rhythm with short ND Possible Left atrial enlargement Prolonged QT Abnormal ECG Compared to ECG 01/06/2024 12:28:52 Short ND interval now present First degree AV block no longer present Left-axis deviation no longer present Electronically Signed On 03-09-24 10:32:18 CDT by Michael Underwood
== END 2024-03-06 05:06 | disposition short-term general hospital (02) ==
LOC: ER 19:54
DX: K52.9 Noninfective gastroenteritis and colitis, unspecified (principal); A41.9 Sepsis, unspecified organism; R74.01 Elevation of levels of liver transaminase levels
CPT/HCPCS: 93005; 87040 ×2; 85025; 81001; 36415; 85610; 82947; 83605 ×2; 85730; 84484; 83690; 80053; 74177; 99285; Q9967; J2765; J1200; J2543; J2405; J7050; J7030 ×2

== ENCOUNTER 2024-08-05 16:13 | Emergency (ER) | payer OTHER ==
[2024-08-05 17:17] LABS: Absolute Basophils 0.1 K/uL (0-0.5); Absolute Lymphocytes (CBC) 2.2 K/uL (0.7-4.9); Absolute Monocytes 1.2 K/uL (0.1-1.3); Absolute Neutrophil 13.9 K/uL (1.8-8.0); Basophils % 0.6 % (0-1.3); Hematocrit 39.2 % (39.6-49.0); Hemoglobin 13.1 g/dL (13.6-17.9); Lymphocytes % 12.4 % (15.3-44.8); MCH 29.1 pg (27.0-35.0); MCHC 33.4 g/dL (32.0-36.0); MCV 87.3 fL (80-100); MPV 9.4 fL (7.6-11.3); Nucleated Red Blood Cells % 0.1 % (0-0); Platelets 159 thou/uL (152-406); RBC Red Blood Cell Count 4.49 M/uL (4.33-5.43); Red Cell Distribution Width 15.2 % (12.1-15.2)
--- NOTE | 2024-08-05 17:20 | RAD REPORT ---
EXAM: CT brain without contrast HISTORY: SYNCOPE COMPARISON: None TECHNIQUE: Multiple contiguous axial images were obtained and a CT of the brain without contrast. Sag ittal and coronal reformats were performed. One or more of the following dose reduction techniques were used: Automated exposure control, adjust ment of the mA and/or kV according to patient size, and/or iterative reconstruction. FINDINGS: Area of diminished density measuring 1 cm in the anterior left basal ganglia associated with a tiny a hermelindo of hyperdensity measuring 1 mm noted. Slightly smaller hypodensity also seen in the anterior right basal ganglia. These could represent subacute infarcts. MRI brain recommended for further tamela p. The brain is normal in morphology. No midline shift. The calvarium is intact. The visualized paranasal sinuses and mastoid air cells are essentially clear . IMPRESSION: Hypodense lesions in the anterior aspect of both basal ganglia could be subacute infarctions. Demyeli nating lesions is a secondary possibility. MRI of the brain with contrast recommended for further workup.
[2024-08-05 17:22] LABS: PT Prothrombin Time 14.5 SECONDS (9.4-12.5); PTT, Activated Partial Thromb 25.9 SECONDS (24.3-36.9); Protime INR 1.3
[2024-08-05 17:33] LABS: Albumin/Globulin Ratio 0.6 (1.1-1.8); Anion Gap 14.4 mEq/L (5.0-15.0); Potassium 3.4 mEq/L (3.5-5.1)
--- NOTE | 2024-08-05 17:34 | RAD REPORT ---
EXAMINATION: ONE VIEW CHEST XR CLINICAL INDICATION: syncope, malaise TECHNIQUE: Frontal chest projection is submitted. Examination is limited by patient positioning and t echnique. COMPARISON: 07/18/2024 FINDINGS: The lungs are well inflated and clear. The heart is normal in size. No displaced fractures identified . IMPRESSION: No acute intrathoracic abnormalities.
[2024-08-05] MEDS ORDERED: NA CHLORIDE 0.9% 1,000 ML ONE (18:03)
[2024-08-05 18:06] LABS: SARS-CoV-2 Antigen CONTROL BLUE LINE VIS/BG OK; SARS-CoV-2 Antigen Rapid Res Negative (Negative)
[2024-08-05] MEDS ORDERED: LORazepam 2 MG/ML VIAL ONE (18:19)
--- NOTE | 2024-08-05 19:54 | RAD REPORT ---
EXAMINATION: MRI BRAIN WITHOUT AND WITH CONTRAST CLINICAL INDICATION: SYNCOPE TECHNIQUE: Multiplanar multisequence MR images of the brain were obtained without and with intravenou s contrast. Unless otherwise specified, incidental findings do not require dedicated imaging follow-up. COMPARISON: 08/05/2024 CT head FINDINGS: INTRACRANIAL: 16 x 16 mm rounded lesion is present anterior left basal ganglia and periventricular wh ite matter. This lesion demonstrates elevated T1 signal on precontrast, which may indicate hemorrhagic component. In addition, it demonstrates mild diffusion restriction and rim enhancement po stcontrast. The right periventricular area of FLAIR hyperintensity does not enhance... VASCULATURE: Normal signal voids in the larger intracranial arteries and dural venous sinuses. SINUSES: The paranasal sinuses and mastoid air cells are predominantly clear. BONE: The marrow signal pattern is within normal limits. CONTRAST: No additional areas of abnormal enhancement seen. OTHER FINDINGS: IMPRESSION: Irregular 16 x 12 x 9 mm rim enhancing lesion left anterior basal ganglia and periventricular white m atter. Differential considerations would include demyelinating lesion, neoplasm, metastatic deposit or infection such as toxoplasmosis.
--- NOTE | 2024-08-05 19:58 | RAD REPORT ---
EXAMINATION: CT ABDOMEN AND PELVIS WITHOUT CONTRAST CLINICAL INDICATION: NAUSEA / VOMITING TECHNIQUE: CT abdomen and pelvis was performed, without IV contrast, as per department protocol. Axia l, sagittal and coronal reconstructions were obtained. One or more of the following dose reduction techniques were used: Automated exposure control, adjustment of the mA and kV according to the patien t size, and iterative reconstruction. Unless otherwise specified, incidental findings do not require dedicated imaging follow-up. COMPARISON: No prior exam. FINDINGS: The lack of intravenous contrast limits the sensitivity of this exam for evaluation of solid visceral organs, vascular structures, and retroperitoneum. LOWER CHEST: The visualized lung bases are clear. LIVER:Normal in size and contour. No focal lesion. Cholecystectomy clips. SPLEEN: Normal size. No focal lesion. PANCREAS: No mass, ductal dilation, or yesenia-pancreatic fluid. ADRENALS: Normal; no mass. KIDNEYS AND URETERS: Normal size and contour. No hydronephrosis. URINARY BLADDER: Normal contour. GASTROINTESTINAL TRACT: No evidence of bowel obstruction, significant free fluid, free air or abscess . APPENDIX: Normal appendix. LYMPH NODES: No lymphadenopathy. MUSCULOSKELETAL: Mild lower lumbar spondylosis. ADDITIONAL FINDINGS: None. IMPRESSION: No acute or concerning abnormalities in the abdomen or pelvis, with evaluation limited by lack of IV contrast.
--- NOTE | 2024-08-05 21:00 | ER ---
Nurse's Notes [facility] Name: Ely Chisholm Age: 49 yrs Sex: Male : 1975 Arrival Date: 08/05/2024 Time: 16:13 Bed 15 Private MD: Diagnosis: Irregular 16 x 12 x 9 mm rim-enhancing lesion left anterior basal ganglia;Elevated white blood cell count;Syncope Presentation: 08/05 16:32 Chief complaint: EMS states: Went to doctors office today because pt's been feeling rs5 sick since thanksgi, blood sugars in 40's and systolic BP's in 70's. Pt was drowsy but alert and oriented on arrival. Coronavirus screen: At this time, the client does not indicate any symptoms associated with coronavirus-19. Ebola Screen: No symptoms or risks identified at this time. Initial Sepsis Screen: Does the patient meet any 2 criteria? RR > 20 per min. HR > 90 bpm. Yes Does the patient have a suspected source of infection? No. Patient's initial sepsis screen is negative. Risk Assessment: Do you want to hurt yourself or someone else? Patient reports no desire to harm self or others. Onset of symptoms was August 05, 2024. 16:32 Method Of Arrival: EMS: [facility] rs5 16:32 Acuity: SALMA 3 rs5 Historical: - Allergies: 18:28 No Known Allergies; tm6 - PMHx: 16:35 Anemia; Diabetes - NIDDM; Hypertension; rs5 - PSHx: 16:35 Cholecystectomy; rs5 - Immunization history:: Adult Immunizations unknown. - Infectious Disease History:: Denies. - Social history:: Smoking status: Patient denies any tobacco usage or history of. Screenin:27 [facility] ED Fall Risk Assessment (Adult) History of falling in the last 3 months, tm6 including since admission No falls in past 3 months (0 pts) Confusion or Disorientation No (0 pts) Intoxicated or Sedated No (0 pts) Impaired Gait No (0 pts) Mobility Assist Device Used No (0 pt) Altered Elimination No (0 pt) Score/Fall Risk Level 0 - 2 = Low Risk Oriented to surroundings, Maintained a safe environment, Educated pt \T\ family on fall prevention, incl call for assistance when getting out of bed. Abuse screen: Denies threats or abuse. Denies injuries from another. Nutritional screening: No deficits noted. Tuberculosis screening: No symptoms or risk factors identified. Assessment: 18:08 General: Appears. tm6 18:08 General: Appears in no apparent distress. Behavior is calm, cooperative. Pain: Denies tm6 pain. Neuro: Level of Consciousness is awake, alert, obeys commands, confused, Oriented to person. Cardiovascular: Patient's skin is warm and dry. Respiratory: Airway is patent Respiratory effort is even, unlabored, Respiratory pattern is regular, symmetrical. GI: No signs and/or symptoms were reported involving the gastrointestinal system. Abdomen is flat, non-distended. : No signs and/or symptoms were reported regarding the genitourinary system. EENT: No signs and/or symptoms were reported regarding the EENT system. Derm: No signs and/or symptoms reported regarding the dermatologic system. Musculoskeletal: Parent/caregiver report the patient having hiccups. 19:19 Reassessment: patient in MRI. tm6 20:27 Reassessment: Patient and/or family updated on plan of care and expected duration. Pain tm6 level reassessed. Patient is alert, oriented x 3, equal unlabored respirations, skin warm/dry/pink. 23:08 Reassessment: Patient appears in no apparent distress at this time. Patient and/or jb4 family updated on plan of care and expected duration. Pain level reassessed. Patient is alert, oriented x 3, equal unlabored respirations, skin warm/dry/pink. 12 00:00 Reassessment: Pt resting in bed with eyes closed. respirations even and unlabored with jb4 no s/s of pain or distress noted. 01:10 Reassessment: Patient appears in no apparent distress at this time. No changes from jb4 previously documented assessment. Patient and/or family updated on plan of care and expected duration. Pain level reassessed. 02:46 Reassessment: Patient appears in no apparent distress at this time. No changes from jb4 previously documented assessment. Patient and/or family updated on plan of care and expected duration. Pain level reassessed. Vital Signs: 08/05 16:32 BP 119 / 101; Pulse 109; Resp 22; Pulse Ox 97% on R/A; rs5 17:26 Weight 65.77 kg; tm6 17:26 BP 123 / 85; Pulse 98; Pulse Ox 97% on R/A; MAP 93 mmHg; tm6 18:08 Temp 96.5; tm6 18:08 BP 114 / 68; Pulse 101; Pulse Ox 100% ; MAP 80 mmHg; Pain 0/10; tm6 20:26 BP 127 / 91; Pulse 103; Pulse Ox 96% on R/A; MAP 101 mmHg; Pain 0/10; tm6 20:55 BP 140 / 96; Pulse 113; Temp 98.6; Pulse Ox 96% ; ty 23:08 BP 151 / 103; Pulse 110; Resp 16; Pulse Ox 95% on R/A; jb4 12/04 00:00 BP 153 / 107; Pulse 110; Resp 15; Pulse Ox 96% on R/A; jb4 01:00 BP 145 / 103; Pulse 108; Resp 12 S; Pulse Ox 97% ; jb4 02:46 BP 148 / 93; Pulse 98; Resp 16; Pulse Ox 96% on R/A; jb4 18:08 Pain Scale: Adult tm6 20:26 Pain Scale: Adult tm6 [place] Coma Score: 08/05 20:14 Eye Response: spontaneous(4). Motor Response: obeys commands(6). Verbal Response: kb confused(4). Total: 14. 04 01:41 Eye Response: spontaneous(4). Motor Response: obeys commands(6). Verbal Response: jb4 oriented(5). Total: 15. ED Course: 08/05 16:17 Patient arrived in ED. ec2 16:17 Shanell Soto FNP-C is [facility]. kb 16:17 Carmelo Bowles MD is Attending Physician. kb 16:31 Elier You RN is Primary Nurse. tm6 16:34 Triage completed. rs5 17:16 CT Head Brain wo Cont In Process Unspecified. EDMS 17:16 Blood Culture Adult (2) Sent. tm6 17:16 CBC with Diff Sent. tm6 17:16 Lactate w/ 2H reflex if indic. Sent. tm6 17:16 Protime (+inr) Sent. tm6 17:16 Ptt, Activated Sent. tm6 17:26 Arm band placed on right wrist. tm6 17:27 Maintain EMS IV. Dressing intact. Good blood return noted. Site clean \T\ dry. Gauge \T\ tm 6 site: 18g RAC. Flushed with 10 mL NS. 17:27 Patient has correct armband on for positive identification. Bed in low position. Call tm6 light in reach. Side rails up X2. Provided Education on: use of call avery. Client placed on continuous cardiac and pulse oximetry monitoring. NIBP monitoring applied. color television console monitor on. Pulse ox on. NIBP on. Door closed. Noise minimized. 17:30 Chest Single View XRAY In Process Unspecified. EDMS 17:44 SARS-COV-2 Antigen Rapid Sent. aa5 17:44 Flu Sent. aa5 17:46 EKG done, by ED staff, reviewed by Shanell BECKETT. tm6 19:30 CT Abd/Pelvis - Without Contrast In Process Unspecified. EDMS 19:35 Brain W/Wo Cont In Process Unspecified. EDMS 08/06 02:46 No provider procedures requiring assistance completed. Patient transferred, IV remains jb4 in place. Administered Medications: 08/05 18:07 Drug: NS 0.9% IV (30 ml/kg) 30 ml/kg IV at bolus once; Sepsis Protocol; to be given as tm6 a bolus over 90 minutes Route: IV; Rate: bolus; Site: right antecubital; 20:28 Follow up: Response: No adverse reaction; IV Status: Completed infusion; IV Intake: tm6 1973.1ml 18:28 Drug: Ativan IVP 1 mg IVP once Route: IVP; Site: right antecubital; tm6 20:27 Follow up: Response: No adverse reaction tm6 21:09 Drug: Decadron - Dexamethasone IVP 10 mg IVP once Route: IVP; Site: right antecubital; tm6 21:45 Follow up: Response: No adverse reaction tm6 21:09 Drug: Rocephin IV 1 grams IV at calculated rate once; Given slow IV push per pharmacy tm6 instructions Route: IV; Rate: calculated rate; Site: right antecubital; 21:45 Follow up: Response: No adverse reaction; IV Status: Completed infusion; IV Intake: [id number] 21:45 Drug: vancoMYCIN IVPB 1 grams IVPB once over 2 hrs Route: IVPB; Infused Over: 2 hrs; tm6 Site: right antecubital; 23:45 Follow up: Response: No adverse reaction; Marked relief of symptoms; IV Status: jb4 Completed infusion; IV Intake: 250ml Medication: 18:08 VIS not applicable for this client. tm6 Intake: 20:28 IV: 1973ml; Total: 1973ml. tm6 21:45 IV: 10ml; Total: 1983ml. tm6 23:45 IV: 250ml; Total: 2233ml. jb4 Outcome: 20:59 ER care complete, transfer ordered by MD. agudelo 08/06 02:46 Transferred by ground EMS . [place] [facility] [facility] jb4 completed. X-rays sent w/ patient. Condition: stable Discharge instructions given to patient, family, Instructed on the need for transfer, Demonstrated understanding of instructions, 02:48 Patient left the ED. jb4 Signatures: Dispatcher [employer] Shanell Gonzalez, LIBRARY HELPER-C LIBRARY HELPER-CkSarah Vilchis, RN RN aa5 Simone Figueroa RN RN jb4 Mason Weber RN RN rs5 Carmelo Bowles MD MD ec2 Elier You RN RN tm6 Art Dimas ty
--- NOTE | 2024-08-05 21:00 | EDPHYS ---
Physician Documentation [facility] Name: Ely Chisholm Age: 49 yrs Sex: Male : 1975 Arrival Date: 08/05/2024 Time: 16:13 Bed 15 Private MD: ED Physician Carmelo Bowles HPI: 08/05 20:56 This 49 yrs old Black Male presents to ER via EMS with complaints of Low Blood Sugar - kb hypotension. 22:48 Patient is a 49-year-old male who presents for hypoglycemia and syncopal episode that kb occurred just prior to arrival. Family states patient started feeling unwell, having hiccups with nausea and vomiting 5 days ago. States patient started having syncopal episodes upon standing yesterday. States after patient woke up he would be confused for some time and then back to normal. Patient went to his PCP today for the symptoms. While there was found to have a blood pressure of 70s over 40s, BGL of 44 and he had a syncopal episode so EMS was called. EMS administered D10 and 1 L of normal saline. Patient is awake, alert and confused at time of arrival.. Historical: - Allergies: 18:28 No Known Allergies; tm6 - PMHx: 16:35 Anemia; Diabetes - NIDDM; Hypertension; rs5 - PSHx: 16:35 Cholecystectomy; rs5 - Immunization history:: Adult Immunizations unknown. - Infectious Disease History:: Denies. - Social history:: Smoking status: Patient denies any tobacco usage or history of. ROS: 19:10 Constitutional: As per HPI kb Exam: 19:10 ECG was reviewed by the Attending Physician. kb 20:39 Constitutional: This is a well developed, well nourished patient who is awake, alert, kb and in no acute distress. Head/Face: Normocephalic, atraumatic. ENT: Moist Mucous membranes Cardiovascular: Regular rate Respiratory: Respirations even and unlabored. No increased work of breathing. Talking in full sentences Abdomen/GI: Soft, non-tender. No distention Skin: Warm, dry with normal turgor. Normal color. MS/ Extremity: Pulses equal, no cyanosis. Neurovascular intact. Full, normal range of motion. 20:39 Neuro: Orientation: Mentation: able to follow commands, Motor: moves all fours, Vital Signs: 16:32 BP 119 / 101; Pulse 109; Resp 22; Pulse Ox 97% on R/A; rs5 17:26 Weight 65.77 kg; tm6 17:26 BP 123 / 85; Pulse 98; Pulse Ox 97% on R/A; MAP 93 mmHg; tm6 18:08 Temp 96.5; tm6 18:08 BP 114 / 68; Pulse 101; Pulse Ox 100% ; MAP 80 mmHg; Pain 0/10; tm6 20:26 BP 127 / 91; Pulse 103; Pulse Ox 96% on R/A; MAP 101 mmHg; Pain 0/10; tm6 20:55 BP 140 / 96; Pulse 113; Temp 98.6; Pulse Ox 96% ; ty 23:08 BP 151 / 103; Pulse 110; Resp 16; Pulse Ox 95% on R/A; jb4 04 00:00 BP 153 / 107; Pulse 110; Resp 15; Pulse Ox 96% on R/A; jb4 01:00 BP 145 / 103; Pulse 108; Resp 12 S; Pulse Ox 97% ; jb4 02:46 BP 148 / 93; Pulse 98; Resp 16; Pulse Ox 96% on R/A; jb4 18:08 Pain Scale: Adult tm6 20:26 Pain Scale: Adult tm6 [place] Coma Score: 08/05 20:14 Eye Response: spontaneous(4). Motor Response: obeys commands(6). Verbal Response: kb confused(4). Total: 14. 04 01:41 Eye Response: spontaneous(4). Motor Response: obeys commands(6). Verbal Response: jb4 oriented(5). Total: 15. MDM: 08/05 16:17 Medical Screening Exam initiated kb 20:00 Differential diagnosis: syncope, dehydration, abnormal electrolytes, seizure, kb hypoglycemia. Consideration of Admission/Observation Escalation of care including admission/observation considered. Pt will be transferred to facility that has neurosurgery specialty. Historians other than the Patient: EMS: [facility]. Care significantly affected by the following chronic conditions: Hypertension. Counseling: I had a detailed discussion with the patient and/or guardian regarding the historical points, exam findings, and any diagnostic results supporting the discharge/admit diagnosis, lab results, radiology results, the need to transfer to another facility, [facility] does not immediately have the required specialist. ED course: Discussed diagnostic results with patient's fianc, as well as need for transfer to a facility that has neurosurgery availability. Fianc in agreement. Patient is sleeping comfortably at this time.. 20:00 ED course: Sepsis reevaluation complete. kb 22:52 Data reviewed: vital signs, nurses notes. ED course: Patient was given Ativan so that kb he was still for the MRI. Patient woke up at 2230 and is now alert and oriented x 3. Patient educated on diagnostic results and need for transfer. Patient in agreement.. 23:07 Management of patient was discussed with the following: Dr Wilcox, neuro ICU crimping machine operator for metal accepts pt for consult on the floor. Will accept to ICU if Hospitalist prefers. Awaiting callback from hospitalist. . 23:29 Management of patient was discussed with the following: Dr Gaspar, hospitalist at [facility] accepts pt to tele at [facility]. 12 16:29 Order name: Blood Culture Adult (2) kb 08/05 16:29 Order name: CBC with Diff; Complete Time: 17:21 kb 08/05 16:29 Order name: CMP; Complete Time: 17:41 kb 08/05 16:29 Order name: Lactate w/ 2H reflex if indic.; Complete Time: 17:41 kb 08/05 16:29 Order name: Protime (+inr); Complete Time: 17:23 kb 08/05 16:29 Order name: Ptt, Activated; Complete Time: 17:23 kb 08/05 16:29 Order name: Troponin High Sensitivity; Complete Time: 17:41 kb 08/05 16:38 Order name: Glucose, Ancillary Testing; Complete Time: 16:52 EDMS 08/05 16:42 Order name: Flu; Complete Time: 18:12 kb 08/05 16:42 Order name: SARS-COV-2 Antigen Rapid; Complete Time: 18:08 kb 08/05 19:37 Order name: Ghost Lactate-NO COLLECT Timer; Complete Time: 19:42 EDMS 08/05 20:11 Order name: Lactate w/ 2H reflex if indic.; Complete Time: 20:51 oe 08/05 21:26 Order name: Glucose, Ancillary Testing; Complete Time: 21:29 EDMS 08/06 00:38 Order name: Lactate w/ 2H reflex if indic. kb 08/06 02:30 Order name: Glucose, Ancillary Testing EDMS 08/05 16:29 Order name: Chest Single View XRAY; Complete Time: 17:41 kb 08/05 16:29 Order name: CT Head Brain wo Cont; Complete Time: 17:21 kb 08/05 17:41 Order name: CT Abd/Pelvis - Without Contrast; Complete Time: 20:00 kb 08/05 18:02 Order name: Brain W/Wo Cont; Complete Time: 19:54 EDMS 08/05 16:29 Order name: Accucheck; Complete Time: 17:16 kb 08/05 16:29 Order name: Cardiac monitoring; Complete Time: 17:16 kb 08/05 16:29 Order name: EKG - Nurse/Tech; Complete Time: 17:46 kb 08/05 16:29 Order name: IV Saline Lock - Large Bore; Complete Time: 17:16 kb 08/05 16:29 Order name: Labs collected and sent; Complete Time: 17:16 kb 08/05 16:29 Order name: O2 Per Protocol; Complete Time: 17:16 kb 08/05 16:29 Order name: O2 Sat Monitoring; Complete Time: 17:16 kb 08/05 16:29 Order name: Vital Signs; Complete Time: 17:16 kb 08/05 16:29 Order name: EKG - Nurse/Tech; Complete Time: 17:44 kb 08/05 19:42 Order name: Misc. Order: please draw repeat lactate; Complete Time: 20:12 kb 08/05 20:45 Order name: Vital Signs; Complete Time: 20:56 rv1 08/05 20:56 Order name: Blood Glucose Level; Complete Time: 21:18 kb EC:10 Rate is 97 beats/min. Rhythm is regular. QRS [place] is Normal. NE interval is normal at kb 128 msec. QRS interval is normal at 74 msec. QT interval is normal at 490 msec. Administered Medications: 18:07 Drug: NS 0.9% IV (30 ml/kg) 30 ml/kg IV at bolus once; Sepsis Protocol; to be given as tm6 a bolus over 90 minutes Route: IV; Rate: bolus; Site: right antecubital; 20:28 Follow up: Response: No adverse reaction; IV Status: Completed infusion; IV Intake: tm6 1973.1ml 18:28 Drug: Ativan IVP 1 mg IVP once Route: IVP; Site: right antecubital; tm6 20:27 Follow up: Response: No adverse reaction tm6 21:09 Drug: Decadron - Dexamethasone IVP 10 mg IVP once Route: IVP; Site: right antecubital; tm6 21:45 Follow up: Response: No adverse reaction tm6 21:09 Drug: Rocephin IV 1 grams IV at calculated rate once; Given slow IV push per pharmacy tm6 instructions Route: IV; Rate: calculated rate; Site: right antecubital; 21:45 Follow up: Response: No adverse reaction; IV Status: Completed infusion; IV Intake: [id number] 21:45 Drug: vancoMYCIN IVPB 1 grams IVPB once over 2 hrs Route: IVPB; Infused Over: 2 hrs; tm6 Site: right antecubital; 23:45 Follow up: Response: No adverse reaction; Marked relief of symptoms; IV Status: jb4 Completed infusion; IV Intake: 250ml Disposition Summary: 08/05/24 20:59 Transfer Ordered Notes: Transfer Location: [facility] kb Reason: Higher level of care kb Condition: Stable kb Problem: new kb Symptoms: are unchanged kb Accepting Physician: Dr Gaspar(08/06/24 02:48) jb4 Diagnosis - Irregular 16 x 12 x 9 mm rim-enhancing lesion left anterior basal ganglia kb - Elevated white blood cell count kb - Syncope kb Forms: - Medication Reconciliation Form kb - SBAR form kb Signatures: Dispatcher [employer] EDMS Shanell Soto, FORENSIC ENGINEER-C FORENSIC ENGINEER-Ronnieb Simone Figueroa, RN RN jb4 Shruthi Angelo rv1 Mason Weber, RN RN rs5 Elier You, MOMO RN tm6 Corrections: (The following items were deleted from the chart) 16:29 16:29 BLOOD CULTURE*+BA.LAB.BRZ ordered. EDMS EDMS 16:29 16:29 CBC+H.LAB.BRZ ordered. EDMS EDMS 16:29 16:29 COMPREHENSIVE METABOLIC PANEL+C.LAB.BRZ ordered. EDMS EDMS 16:29 16:29 LACTATE+C.LAB.BRZ ordered. EDMS EDMS 16:29 16:29 PROTIME (+INR)+COAG.LAB.BRZ ordered. EDMS EDMS 16: 16:29 PTT, ACTIVATED+COAG.LAB.BRZ ordered. EDMS EDMS 16: 16:29 Urinalysis+U.LAB.BRZ ordered. EDMS EDMS 16: 16:29 Troponin High Sensitivity+C.LAB.BRZ ordered. EDMS EDMS 16: 16:29 Chest Single View+RAD.RAD.BRZ ordered. EDMS EDMS 16:30 16:30 Head Brain Wo Cont+CT.RAD.BRZ ordered. EDMS EDMS 17:42 17:42 Abdomen Pelvis Wo Con+CT.RAD.BRZ ordered. EDMS EDMS 18:02 17:23 Brain With Cont+MRI.RAD.BRZ ordered. EDMS EDMS 20:59 20:59 Dr magnus agudelo 23:33 20:59 Dr magnus agudelo 12 02:48 12 23:33 Dr Hubert agudelo jb4
[2024-08-05] MEDS ORDERED: CEFTRIAXONE 1000 MG/VIAL ONE (21:02)
[2024-08-05] MEDS ORDERED: dexAMETHasone 10 MG/ML VIAL ONE (21:03)
[2024-08-05] MEDS ORDERED: NA CHLORIDE 0.9% 250 ML ONE (21:11)
[2024-08-05] MEDS ORDERED: VANCOMYCIN 1 GM/VIAL ONE (21:11)
[2024-08-06 09:45] VITALS: TEMP 98.6
[2024-08-06 09:49] VITALS: BP 148/93; O2SAT 96
== END 2024-08-06 02:48 | disposition short-term general hospital (02) ==
LOC: ER 16:13
DX: G23.8 Other specified degenerative diseases of basal ganglia (principal); D72.829 Elevated white blood cell count, unspecified; I10 Essential (primary) hypertension; E11.9 Type 2 diabetes mellitus without complications; Z11.52 Encounter for screening for COVID-19
CPT/HCPCS: 96365; 96367; 87040 ×2; 85025; 36415; 85610; 82947 ×3; 83605 ×3; 85730; 84484; 80053; 87804 ×2; 70450; 74176; 71045; 70553; 96375; 99285; 96366; 87811; A9577; J1100; J7050; J7030; J0696